=== PATIENT | female | born 1970 | race Caucasian/White ===

== ENCOUNTER 2019-05-17 13:53 | Emergency (ER) | payer MEDICARE, MEDICAID ==
[~2019-05-17] VITALS: Ht 149.9 cm; Wt 46.4 kg
[2019-05-17] MEDS ORDERED: iohexol 350MG/ML 100ml bottle IV ONE (14:31)
[2019-05-17] MEDS ORDERED: P-EP-21 PO (14:32)
[2019-05-17] MEDS ORDERED: ASPI-1265 PO (14:32)
[2019-05-17] MEDS ORDERED: POLY17PO10 PO (14:41)
[2019-05-17] MEDS ORDERED: ASCO500C15 PO (14:41)
[2019-05-17] MEDS ORDERED: MULT-933 PO (14:41)
[2019-05-17] MEDS ORDERED: levetiracetam PO (14:41)
[2019-05-17] MEDS ORDERED: LEVO50TA8 PO (14:41)
[2019-05-17] MEDS ORDERED: CLON-528 PO (14:41)
[2019-05-17] MEDS ORDERED: LACT10SO PO (14:41)
[2019-05-17] MEDS ORDERED: CLON-527 PO (14:41)
[2019-05-17 14:44] LABS: BASOPHILS % (AUTO) 0.6 % (0-1); EOSINOPHILS # (AUTO) 0.1 X10'3 (0-0.9); EOSINOPHILS % (AUTO) 1.5 % (0-6); HEMATOCRIT 39.8 % (35.0-45.0); HEMOGLOBIN 13.8 g/dl (12.0-16.0); LYMPHOCYTES # (AUTO) 1.5 X10'3 (1.1-4.8); LYMPHOCYTES % (AUTO) 27.1 % (21-51); MEAN CORPUSCULAR HEMOGLOBIN 32.7 PG (27.0-31.0); MEAN CORPUSCULAR HGB CONC 34.8 g/dL (33.0-36.5); MEAN CORPUSCULAR VOLUME 93.9 FL (78-98); MEAN PLATELET VOLUME 7.8 FL (7.4-10.4); MONOCYTES # (AUTO) 0.5 X10'3 (0-0.9); MONOCYTES % (AUTO) 8.2 % (2-12); NEUTROPHILS # (AUTO) 3.5 X10'3 (1.8-7.7); NEUTROPHILS % (AUTO) 62.6 % (42-75); PLATELET COUNT 207 X10'3 (140-440); RED BLOOD COUNT 4.24 X10'6 (4.20-5.60); RED CELL DISTRIBUTION WIDTH 13.1 % (11.5-14.5); WHITE BLOOD COUNT 5.6 X10'3 (4.5-11.0)
[2019-05-17 14:54] LABS: ALANINE AMINOTRANSFERASE 27 U/L (12-78); ALBUMIN 3.1 G/DL (3.4-5.0); ALBUMIN/GLOBULIN RATIO 0.8 (1.1-1.5); ALKALINE PHOSPHATASE 102 IU/L (46-116); ANION GAP 1 (8-16); ASPARTATE AMINO TRANSFERASE 24 U/L (10-37); BILIRUBIN,TOTAL 0.2 MG/DL (0.1-1.0); BLOOD UREA NITROGEN 18 MG/DL (7-18); CALCIUM 8.2 MG/DL (8.5-10.1); CHLORIDE 107 MMOL/L (99-107); CREATININE 0.75 MG/DL (0.40-0.90); GLUCOSE 94 MG/DL (70-104); POTASSIUM 3.9 MMOL/L (3.5-5.1); SODIUM 143 MMOL/L (135-145); TOTAL CARBON DIOXIDE 35.5 MMOL/L (24-32); TOTAL PROTEIN 7.1 G/DL (6.4-8.2); eGFR 82 ML/MIN
[2019-05-17 14:57] LABS: PARTIAL THROMBOPLASTIN TIME 29 SECONDS (22-32)
--- NOTE | 2019-05-17 15:31 | NUR ---
BACK FROM CT
[2019-05-17] MEDS ORDERED: AZIT-63 PO (15:49)
[2019-05-17] MEDS ORDERED: normal saline 1000ml 1,000 ML IV ONE (15:50)
[2019-05-17 16:43] VITALS: BP 114/83
== END 2019-05-17 17:22 | disposition home or self-care (01) ==
LOC: ER 13:53
DX: R05 Cough (principal); R41.82 Altered mental status, unspecified; Q90.9 Down syndrome, unspecified; G30.9 Alzheimer's disease, unspecified; F02.80 Dementia in other diseases classified elsewhere, unspecified severity, without behavioral disturbance, psychotic disturbance, mood disturbance, and anxiety; Z79.82 Long term (current) use of aspirin; Z79.899 Other long term (current) drug therapy; Z79.2 Long term (current) use of antibiotics
CPT/HCPCS: 36415; 71045; 71275; 80053; 83605; 83880; 85025; 85610; 85730; 87040; 96360; 99284; J7030; Q9967

== ENCOUNTER 2021-06-01 19:51 | Emergency (ER) | payer MEDICARE, MEDICAID ==
[~2021-06-01] VITALS: Ht 162.6 cm; Wt 61.4 kg
[~2021-06-01 19:51] MED LIST: ASCO500C18 PO; ASPI-1265 PO; CLON-527 PO; CLON-528 PO; LACT10SO3 PO; LEVO50TA8 PO; MULT-933 PO; P-EP-21 PO; POLY17PO10 PO; levetiracetam PO
[2021-06-01 20:42] VITALS: BP 130/66
== END 2021-06-01 22:20 | disposition home or self-care (01) ==
LOC: ER 19:51
DX: Z02.89 Encounter for other administrative examinations (principal); Q90.9 Down syndrome, unspecified; Z60.2 Problems related to living alone; Z88.8 Allergy status to other drugs, medicaments and biological substances; Z79.82 Long term (current) use of aspirin; Z79.899 Other long term (current) drug therapy
CPT/HCPCS: 71045; 99283

== ENCOUNTER 2022-11-14 15:00 | Emergency (ER) | payer MEDICARE, MEDICAID ==
[~2022-11-14] VITALS: Ht 142.2 cm; Wt 55.0 kg
[~2022-11-14 15:00] MED LIST changes: +ASPI-1265 GT; -ASPI-1265 PO; +CLON-528 GT; -CLON-528 PO; +LEVO50TA8 GT; -LEVO50TA8 PO
[2022-11-14 15:21] VITALS: BP 113/77
[2022-11-14 16:38] LABS: BASOPHILS % (AUTO) 0.4 % (0-1); EOSINOPHILS # (AUTO) 0.1 X10'3 (0-0.9); EOSINOPHILS % (AUTO) 0.8 % (0-6); HEMATOCRIT 39.6 % (35.0-45.0); HEMOGLOBIN 13.4 g/dl (12.0-16.0); LYMPHOCYTES # (AUTO) 1.4 X10'3 (1.1-4.8); LYMPHOCYTES % (AUTO) 22.5 % (21-51); MEAN CORPUSCULAR HEMOGLOBIN 31.3 PG (27.0-31.0); MEAN CORPUSCULAR HGB CONC 33.7 g/dL (33.0-36.5); MEAN CORPUSCULAR VOLUME 92.8 FL (78-98); MEAN PLATELET VOLUME 8.7 FL (7.4-10.4); MONOCYTES % (AUTO) 16.3 % (2-12); NEUTROPHILS # (AUTO) 3.6 X10'3 (1.8-7.7); PLATELET COUNT 254 X10'3 (140-440); RED BLOOD COUNT 4.26 X10'6 (4.20-5.60); RED CELL DISTRIBUTION WIDTH 13.8 % (11.5-14.5)
[2022-11-14] MEDS ORDERED: amox tr/clav. pot 400mg/5ml 100ml suspension PO ONE (16:45)
[2022-11-14] MEDS ORDERED: dexamethasone 4mg/ml inj IM ONE (16:45)
[2022-11-14 17:04] LABS: ALANINE AMINOTRANSFERASE 44 U/L (12-78); ALBUMIN/GLOBULIN RATIO 0.7 (1.1-1.5); ALKALINE PHOSPHATASE 83 IU/L (46-116); ANION GAP 6 (8-16); ASPARTATE AMINO TRANSFERASE 29 U/L (10-37); BILIRUBIN,TOTAL 0.3 MG/DL (0.1-1.0); BLOOD UREA NITROGEN 5 MG/DL (7-18); BUN/CREATININE RATIO 7.5 (10.0-20.0); C-REACTIVE PROTEIN 5.21 MG/DL (0.0-0.5); CALCIUM 8.9 MG/DL (8.5-10.1); CHLORIDE 98 MMOL/L (99-107); CREATININE 0.67 MG/DL (0.40-0.90); GLUCOSE 100 MG/DL (70-104); POTASSIUM 4.5 MMOL/L (3.5-5.1); SODIUM 134 MMOL/L (135-145); TOTAL CARBON DIOXIDE 30.1 MMOL/L (24-32); TOTAL PROTEIN 7.1 G/DL (6.4-8.2); eGFR > 90 ML/MIN
[2022-11-14] MEDS ORDERED: normal saline 1000ML IV soln IVB ONE (17:30)
[2022-11-14 18:42] LABS: TOTAL CELLS COUNTED 100
[2022-11-14 18:43] LABS: PLATELET ESTIMATE NORMAL
--- NOTE | 2022-11-14 19:00 | NUR ---
intake 40ml tap water into neisha tube
== END 2022-11-14 19:54 | disposition home or self-care (01) ==
LOC: ER 15:01
DX: U07.1 COVID-19 (principal); Z88.1 Allergy status to other antibiotic agents; Z88.8 Allergy status to other drugs, medicaments and biological substances; Z79.899 Other long term (current) drug therapy
CPT/HCPCS: 36415; 71045; 80053; 83605; 84145; 85007; 85025; 86140; 96372; 99284; J1100; J7040

== ENCOUNTER 2022-11-15 18:59 | Inpatient (IN) | payer MEDICARE, MEDICAID ==
[~2022-11-15] VITALS: Ht 142.2 cm; Wt 55.2 kg
[2022-11-15 20:22] LABS: BASOPHILS % (AUTO) 0.1 % (0-1); EOSINOPHILS % (AUTO) 0.1 % (0-6); HEMATOCRIT 37.4 % (35.0-45.0); HEMOGLOBIN 12.6 g/dl (12.0-16.0); LYMPHOCYTES # (AUTO) 1.3 X10'3 (1.1-4.8); LYMPHOCYTES % (AUTO) 13.1 % (21-51); MEAN CORPUSCULAR HEMOGLOBIN 31.3 PG (27.0-31.0); MEAN CORPUSCULAR HGB CONC 33.8 g/dL (33.0-36.5); MEAN CORPUSCULAR VOLUME 92.6 FL (78-98); MEAN PLATELET VOLUME 8.8 FL (7.4-10.4); MONOCYTES # (AUTO) 1.9 X10'3 (0-0.9); MONOCYTES % (AUTO) 19.2 % (2-12); NEUTROPHILS # (AUTO) 6.7 X10'3 (1.8-7.7); NEUTROPHILS % (AUTO) 67.5 % (42-75); PLATELET COUNT 313 X10'3 (140-440); RED BLOOD COUNT 4.03 X10'6 (4.20-5.60); RED CELL DISTRIBUTION WIDTH 13.8 % (11.5-14.5); WHITE BLOOD COUNT 9.9 X10'3 (4.5-11.0)
[2022-11-15] MEDS ORDERED: dexamethasone sod phosphate 10mg/ml inj IM STA (20:42)
[2022-11-15] MEDS ORDERED: normal saline 1000ML IV soln IVB ONE (20:45)
[2022-11-15 20:49] LABS: ALANINE AMINOTRANSFERASE 38 U/L (12-78); ALBUMIN 2.8 G/DL (3.4-5.0); ALBUMIN/GLOBULIN RATIO 0.7 (1.1-1.5); ALKALINE PHOSPHATASE 75 IU/L (46-116); ANION GAP 8 (8-16); ASPARTATE AMINO TRANSFERASE 22 U/L (10-37); BILIRUBIN,TOTAL 0.2 MG/DL (0.1-1.0); BLOOD UREA NITROGEN 8 MG/DL (7-18); BUN/CREATININE RATIO 12.7 (10.0-20.0); CALCIUM 8.5 MG/DL (8.5-10.1); CHLORIDE 98 MMOL/L (99-107); CREATININE 0.63 MG/DL (0.40-0.90); GLUCOSE 57 MG/DL (70-104); POTASSIUM 3.6 MMOL/L (3.5-5.1); SODIUM 134 MMOL/L (135-145); TOTAL CARBON DIOXIDE 28.2 MMOL/L (24-32); TOTAL PROTEIN 6.8 G/DL (6.4-8.2); eGFR > 90 ML/MIN
[2022-11-15 20:52] LABS: PLATELET ESTIMATE NORMAL; TOTAL CELLS COUNTED 100
[2022-11-15 20:53] LABS: POIKILOCYTOSIS FEW; SMUDGE CELLS FEW
[2022-11-15] MEDS ORDERED: ipratropium/albuterol 3ml nebule NEB ONE (20:55)
[2022-11-15] MEDS ORDERED: budesonide 0.5mg/2ml UD nebule IH ONE (20:55)
--- NOTE | 2022-11-15 21:42 | NUR ---
caregiver at bedside. pt still coughing up stuff and needs suctions per caregiver. resp tx finished and per resp, no improvement with tx. dr franz notified and at bedside.
--- NOTE | 2022-11-15 23:37 | NUR ---
caregiver suctioning secretions at bedside, dr daniel at bedside.
[2022-11-15] MEDS ORDERED: mag hydrox/Alum hydrox/simeth 30ml oral suspension PO PRN (23:40)
[2022-11-15] MEDS ORDERED: ondansetron/PF 4mg/2ml inj IV PRN (23:40)
[2022-11-15] MEDS ORDERED: magnesium hydroxide 30ml (MOM) UD suspension PO PRN (23:40)
[2022-11-15] MEDS ORDERED: magnesium 2GM in 50ml NS 50 ML IV PRN (23:40)
[2022-11-15] MEDS ORDERED: magnesium 4gm in 100ml NS 100 ML IV PRN (23:40)
[2022-11-15] MEDS ORDERED: potassium Cl 40MEQ/1/2NS 520ml 520 ML IV PRN (23:40)
[2022-11-15] MEDS ORDERED: acetaminophen 650mg rectal suppository RC PRN (23:40)
--- NOTE | 2022-11-15 23:52 | NUR ---
pt brief changed with caregiver, 1 urine and 1 stool. per caregiver, normal for pt.
[2022-11-15] MEDS: normal saline 1000ml 1,000 ML IV SCH (23:59)
[2022-11-16] MEDS ORDERED: LACT-193 GT (00:38)
[2022-11-16] MEDS ORDERED: CALC500T63 GT (00:38)
[2022-11-16] MEDS ORDERED: MENT71OI TOP (00:38)
[2022-11-16] MEDS ORDERED: AZIT200S43 GT (00:38)
[2022-11-16] MEDS ORDERED: [UNRECOGNIZED DRUG - CODE] GT (00:38)
[2022-11-16] MEDS ORDERED: LEVE100S GT (00:52)
[2022-11-16] MEDS ORDERED: LORA10TA7 GT (00:52)
[2022-11-16] MEDS ORDERED: [UNRECOGNIZED DRUG - CODE] GT (01:09)
[2022-11-16] MEDS ORDERED: ASCO-134 GT (01:09)
[2022-11-16] MEDS ORDERED: POLY119P2 GT (01:09)
[2022-11-16] MEDS ORDERED: ELEC1000 GT (01:09)
[2022-11-16] MEDS ORDERED: DIAZ1KIT2 RC (01:28)
[2022-11-16] MEDS ORDERED: ZINC57OI3 TOP (01:28)
[2022-11-16] MEDS ORDERED: NA P133E4 RC (01:28)
[2022-11-16] MEDS ORDERED: BISA10SU60 RC (01:28)
[2022-11-16] MEDS ORDERED: ALBU2.5V12 NEB (01:28)
[2022-11-16] MEDS ORDERED: PEG15DRO14 EACHEYE (01:28)
[2022-11-16] MEDS ORDERED: IBUP-2768 GT (01:44)
[2022-11-16] MEDS ORDERED: [UNRECOGNIZED DRUG - CODE] GT (01:44)
[2022-11-16] MEDS ORDERED: MAGN400O6 GT (01:44)
[2022-11-16] MEDS ORDERED: NYST15CR36 TOP (01:44)
[2022-11-16] MEDS ORDERED: BISM262O GT (01:44)
[2022-11-16] MEDS ORDERED: OLOP5DRO26 EACHEYE (01:44)
[2022-11-16] MEDS ORDERED: HYDROCORTISONE 2.5% TOP (01:44)
[2022-11-16] MEDS ORDERED: TRIA15CR61 TOP (01:46)
[2022-11-16] MEDS ORDERED: NYSTATIN CREAM - 30GM TUBE TP PRN (02:05)
[2022-11-16] MEDS ORDERED: PEG 400/HYPROMELLOSE/GLYCERIN 15ml bottle EACHEYE PRN ×2 (02:05)
[2022-11-16] MEDS ORDERED: albuterol 2.5 MG/3 ML nebule NEB PRN (02:05)
[2022-11-16] MEDS ORDERED: bisacodyl 10mg suppository rectal RC PRN (02:05)
[2022-11-16 02:09] LABS: BASOPHILS % (AUTO) 0.1 % (0-1); EOSINOPHILS % (AUTO) 0 % (0-6); HEMATOCRIT 35.3 % (35.0-45.0); LYMPHOCYTES # (AUTO) 0.3 X10'3 (1.1-4.8); LYMPHOCYTES % (AUTO) 6.2 % (21-51); MEAN CORPUSCULAR HEMOGLOBIN 30.8 PG (27.0-31.0); MEAN CORPUSCULAR HGB CONC 33.8 g/dL (33.0-36.5); MEAN CORPUSCULAR VOLUME 91.2 FL (78-98); MEAN PLATELET VOLUME 8.6 FL (7.4-10.4); MONOCYTES # (AUTO) 0.3 X10'3 (0-0.9); MONOCYTES % (AUTO) 5.7 % (2-12); NEUTROPHILS # (AUTO) 4.9 X10'3 (1.8-7.7); PLATELET COUNT 283 X10'3 (140-440); RED BLOOD COUNT 3.88 X10'6 (4.20-5.60); RED CELL DISTRIBUTION WIDTH 13.8 % (11.5-14.5); WHITE BLOOD COUNT 5.6 X10'3 (4.5-11.0)
[2022-11-16 02:17] LABS: ALANINE AMINOTRANSFERASE 34 U/L (12-78); ALBUMIN 2.7 G/DL (3.4-5.0); ALBUMIN/GLOBULIN RATIO 0.7 (1.1-1.5); ALKALINE PHOSPHATASE 70 IU/L (46-116); ANION GAP 6 (8-16); ASPARTATE AMINO TRANSFERASE 21 U/L (10-37); BILIRUBIN,TOTAL 0.2 MG/DL (0.1-1.0); BLOOD UREA NITROGEN 5 MG/DL (7-18); BUN/CREATININE RATIO 6.8 (10.0-20.0); CALCIUM 8.1 MG/DL (8.5-10.1); CHLORIDE 102 MMOL/L (99-107); CREATININE 0.73 MG/DL (0.40-0.90); GLUCOSE 161 MG/DL (70-104); MAGNESIUM 2.1 MG/DL (1.5-2.4); SODIUM 135 MMOL/L (135-145); TOTAL PROTEIN 6.4 G/DL (6.4-8.2); eGFR 83 ML/MIN
[2022-11-16] MEDS ORDERED: levoTHYROXINE 25mcg tablet GT SCH (02:31)
--- NOTE | 2022-11-16 06:39 | NUR ---
Patient received in bed, caregiver at bedside.
[2022-11-16] MEDS ORDERED: lansoprazole 15mg solutab PEG SCH (07:30)
[2022-11-16] MEDS ORDERED: lactose-reduced food/fiber (Jevity 1.2 Cal) 237ml BOTTLE GT SCH ×2 (08:00→13:00)
[2022-11-16] MEDS ORDERED: dexamethasone inj 6 MG in dextrose 5%-water 100 ML IV SCH (08:00)
[2022-11-16] MEDS ORDERED: docusate sod 100mg capsule PO SCH (08:00)
[2022-11-16] MEDS ORDERED: non-formulary drug (Na Phos,M-B/Na Phos,Di-Ba* (Fleet's Enema*) 1 BOTTLE) RC PRN (08:30)
[2022-11-16] MEDS ORDERED: triamcinolone acetonide 0.5% cream 15gm TP PRN (08:30)
[2022-11-16] MEDS ORDERED: hydrocortisone 2.5% cream 28.4gm TP PRN (08:30)
[2022-11-16] MEDS ORDERED: guaiFENesin 200 MG/10 ML oral syrup UD cup GT PRN (08:30)
[2022-11-16] MEDS ORDERED: DIAZEPAM 10 MG PR PRN (08:30)
[2022-11-16] MEDS ORDERED: bismuth subsalicylate 262mg/15ml oral suspension PEG PRN (08:30)
[2022-11-16 09:50] VITALS: BP 143/74
[2022-11-16] MEDS: K and/or MAG REPLACEMENT MC SCH ×2 (10:24→18:28)
[2022-11-16 10:38] LABS: D-DIMER 0.29 MG/L FEU (0-0.50)
[2022-11-16] MEDS: lansoprazole 15mg solutab PEG SCH (10:42)
[2022-11-16] MEDS: aspirin 81mg tab.chew GT SCH (10:42)
[2022-11-16] MEDS: levoTHYROXINE 25mcg tablet GT SCH (10:42)
[2022-11-16] MEDS: levetiracetam 100mg/ml oral solution 5ml UD cup GT SCH ×2 (10:42→22:04)
[2022-11-16] MEDS: heparin, porcine 5000 units/ml vial SQ SCH ×2 (10:42→22:05)
--- NOTE | 2022-11-16 11:38 | NUR ---
TF consult: Pt admit for Covid-19 with a history of down syndrome seizures, and feeding through G-tube at home per EMR. Caregiver at bedside during time of visit named Ling contact infomation . Caregiver reports pt has had a G-tube for many years ,gets Jevity 1.2 bolus feeds at 247mL x 3 day, and unsure of the water flushes amounts. Noted discrepency of ht in EMR, caregiver states pt is 4'8 (56in) tall. TF to start today per MD, see recs below. Pending LBM in the EMR. Will continue to follow. Recommendations: 1. Continous TF via G-tube of Jevity 1.2kcal at 45ml/hr goal rate; to provide 1080ml volume/day, 1296 kcal, 60g of protein, and 872ml of free water) 2. Water flushes q4H at 70ml, monitor serum Na 3 Monitor TF tolerance 4.Prealbumin q Sunday/ 5. routine bowel care 6. daily scaled wts Addendum: 11/16/22 at 1139 [address] An[address] Amended: Links added. Addendum: 11/16/22 at [address] TODD has reviewed and approves of above note.
[2022-11-16] MEDS: polyethylene glycol 3350 17gm powd pack PEG SCH (12:52)
--- NOTE | 2022-11-16 14:16 | NUR ---
F/u 11/16: Per RN, pt caregiver requests only bolus feeds at usual 0830, 1430, 2029 schedule instead of continuous at this time; updated recs below d/w RN and MD notified. Per caregiver pt receives "lots" of water at home but unsure amount since she doesn't directly provide; noted serum Na 134mmol/L on admit now 135mmol/L this AM. Will monitor for TF tolerance and adjustment needs as medically indicated. Recommendations: 1. Bolus G-tube feeds TID at 0830, 1430, and 2029 home schedule per caregiver request using [email or web address] 1.2 at 360ml goal bolus; to provide 1080ml volume/day, 1296 kcal, 60g of protein, and 872ml of free water. Initiate at 250ml bolus and advance 80ml per bolus to goal as tolerated. 2. Additional 70ml water flush before and after each bolus, monitor serum Na since 135mmol/L this AM up from initial 134mmol/L s/p NS per EMR 3. Monitor TF tolerance 4. Prealbumin q Sunday/; daily scaled wts 5. routine bowel care Addendum: 11/16/22 at [address] Amended: Links added. Addendum: 11/16/22 at [address] *CORRECTION* Recommendations: 1. Bolus G-tube feeds TID at 0830, 1430, and 2030 home schedule per caregiver request using [email or web address] 1.2 at 360ml goal bolus; to provide 1080ml volume/day, 1296 kcal, 60g of protein, and 872ml of free water. Initiate at 250ml bolus and advance 70ml per bolus to goal as tolerated.
[2022-11-16] MEDS: normal saline 1000ml 1,000 ML IV SCH (16:46)
[2022-11-16 18:00] VITALS: BP 121/65
--- NOTE | 2022-11-16 18:00 | NUR ---
Patient in room [facility]TH[facility] 4006. I have received report from Jose Luis ACOSTA and had the opportunity to ask questions and assume patient care.
[2022-11-16] MEDS: MENTHOL TOP SCH (20:00)
[2022-11-16] MEDS: zinc oxide ointment 30gm tube TP SCH (20:00)
[2022-11-16] MEDS: ZINC OXIDE TOP SCH (20:00)
[2022-11-16] MEDS ORDERED: calcium carbonate 500mg chew tablet PEG PRN (21:00)
[2022-11-16] MEDS ORDERED: clonazePAM 0.5mg tablet PEG SCH (21:00)
[2022-11-16] MEDS ORDERED: CLONAZEPAM 0.25 MG oral disentigrating tablet (ODT) PO SCH (21:17)
[2022-11-16 22:00] VITALS: BP 140/84
[2022-11-16] MEDS: docusate sodium 100mg/10ml UD cup PO SCH (22:04)
[2022-11-16] MEDS: dexamethasone inj 6 MG in normal saline 50ml IV soln 50 ML IV SCH (22:05)
[2022-11-16] MEDS: ascorbic acid 500mg tablet PEG SCH (22:06)
[2022-11-17 02:00] VITALS: BP 119/74
[2022-11-17] MEDS: normal saline 1000ml 1,000 ML IV SCH (04:21)
[2022-11-17] MEDS: lansoprazole 15mg solutab PEG SCH (05:19)
[2022-11-17] MEDS: levoTHYROXINE 25mcg tablet GT SCH (05:19)
[2022-11-17 06:00] VITALS: BP 156/71
[2022-11-17 06:26] LABS: BASOPHILS % (AUTO) 0.2 % (0-1); EOSINOPHILS % (AUTO) 0 % (0-6); HEMATOCRIT 36.8 % (35.0-45.0); HEMOGLOBIN 12.2 g/dl (12.0-16.0); LYMPHOCYTES # (AUTO) 0.5 X10'3 (1.1-4.8); LYMPHOCYTES % (AUTO) 12.1 % (21-51); MEAN CORPUSCULAR HEMOGLOBIN 30.6 PG (27.0-31.0); MEAN CORPUSCULAR HGB CONC 33.1 g/dL (33.0-36.5); MEAN CORPUSCULAR VOLUME 92.3 FL (78-98); MEAN PLATELET VOLUME 9.2 FL (7.4-10.4); MONOCYTES # (AUTO) 0.3 X10'3 (0-0.9); MONOCYTES % (AUTO) 6.6 % (2-12); NEUTROPHILS # (AUTO) 3.6 X10'3 (1.8-7.7); NEUTROPHILS % (AUTO) 81.1 % (42-75); PLATELET COUNT 258 X10'3 (140-440); RED BLOOD COUNT 3.98 X10'6 (4.20-5.60); RED CELL DISTRIBUTION WIDTH 13.5 % (11.5-14.5); WHITE BLOOD COUNT 4.4 X10'3 (4.5-11.0)
[2022-11-17 06:32] LABS: D-DIMER 0.43 MG/L FEU (0-0.50)
[2022-11-17 06:40] LABS: ALANINE AMINOTRANSFERASE 36 U/L (12-78); ALBUMIN 2.6 G/DL (3.4-5.0); ALBUMIN/GLOBULIN RATIO 0.7 (1.1-1.5); ALKALINE PHOSPHATASE 73 IU/L (46-116); ANION GAP 8 (8-16); ASPARTATE AMINO TRANSFERASE 24 U/L (10-37); BILIRUBIN,TOTAL 0.2 MG/DL (0.1-1.0); BLOOD UREA NITROGEN 7 MG/DL (7-18); BUN/CREATININE RATIO 11.1 (10.0-20.0); C-REACTIVE PROTEIN 1.11 MG/DL (0.0-0.5); CALCIUM 7.9 MG/DL (8.5-10.1); CHLORIDE 102 MMOL/L (99-107); CREATININE 0.63 MG/DL (0.40-0.90); GLUCOSE 134 MG/DL (70-104); LACTATE DEHYDROGENASE 186 U/L (81-234); MAGNESIUM 2.2 MG/DL (1.5-2.4); PHOSPHORUS 2.4 MG/DL (2.3-4.5); POTASSIUM 4.3 MMOL/L (3.5-5.1); PREALBUMIN 17.9 MG/DL (19-36); SODIUM 137 MMOL/L (135-145); TOTAL PROTEIN 6.3 G/DL (6.4-8.2); eGFR > 90 ML/MIN
[2022-11-17] MEDS: heparin, porcine 5000 units/ml vial SQ SCH ×2 (08:00→21:49)
[2022-11-17] MEDS: MENTHOL TOP SCH ×2 (08:00→20:00)
[2022-11-17] MEDS: levetiracetam 100mg/ml oral solution 5ml UD cup GT SCH ×2 (08:00→20:00)
[2022-11-17] MEDS: docusate sodium 100mg/10ml UD cup PO SCH ×2 (08:00→21:48)
[2022-11-17] MEDS: zinc oxide ointment 30gm tube TP SCH ×2 (08:00→20:00)
[2022-11-17] MEDS: ZINC OXIDE TOP SCH ×2 (08:00→20:00)
[2022-11-17] MEDS: K and/or MAG REPLACEMENT MC SCH ×2 (08:00→20:00)
[2022-11-17] MEDS: dexamethasone inj 6 MG in normal saline 50ml IV soln 50 ML IV SCH ×2 (08:00→21:49)
--- NOTE | 2022-11-17 09:26 | NUR ---
Noted pt with a low Ablert of 7. No edema or wounds identified in EMR. Pt tolerating bolus TF per screen and cyclone repairer. Serum Na remains WNL. No changes to nutrition recommendations at this time. Will continue to follow. Addendum: 11/17/22 at [address] Amended: Links added.
[2022-11-17 10:00] VITALS: BP 131/63
--- NOTE | 2022-11-17 10:53 | NUR ---
Message: Jenni Campos [phone] RE: Celestino [phone] please call have question re: Gopiitussin order for 1000mg Q4h prn pharmacy no help Custom Responses: promotional table spacer Transaction number: [id number]
[2022-11-17] MEDS ORDERED: guaiFENesin 200 MG/10 ML oral syrup UD cup GT PRN (10:58)
[2022-11-17] MEDS: ascorbic acid 500mg tablet PEG SCH ×2 (11:04→21:51)
[2022-11-17] MEDS: aspirin 81mg tab.chew GT SCH (11:04)
[2022-11-17] MEDS: loratadine 10mg tablet PEG SCH (11:04)
[2022-11-17] MEDS: polyethylene glycol 3350 17gm powd pack PEG SCH (12:00)
--- NOTE | 2022-11-17 13:27 | NUR ---
Primary caregiver at the bedside, attentive to teaching and gives a verbal return of understanding. PRESSURE ULCER EDUCATION: DEFINITION: A pressure ulcer is an area of skin that breaks down when you stay in one position too long. The constant pressure against the skin reduces the blood flow to that area and the affected tissue dies. CAUSES: "Being bedridden or in a wheelchair "Fragile skin "Having a chronic condition, such as diabetes or vascular disease "Inability to move certain parts of your body without assistance "Older age "Incontinence of urine or stool SYMPTOMS: "A reddened area that DOES NOT turn white when pressed on - this can be the beginning of a pressure ulcer "A blister, deep sore or a crater - these can be advanced pressure ulcers FIRST AID: "Relieve the pressure on this area "Keep the area clean and dry "Call your primary doctor if you see any of the above symptoms "DO NOT massage the area "DO NOT use a donut shaped or ring shaped pillow- these actually interfere with the blood flow and cause complications PREVENTION: "Check for pressure ulcers everyday "Change position at least every two hours to relieve pressure "Use items that help relieve pressure- pillows, sheepskin, foam padding, and powders. "Keep skin clean and dry "Eat healthy well balanced meals "Exercise daily IF YOU SEE ANY OF THESE SYMPTOMS WHILE IN THE HOSPITAL - TELL YOUR NURSE IMMEDIATELY. IF YOU SEE ANY OF THESE SYMPTOMS WHILE AT HOME OR HAVE ANY QUESTIONS OR CONCERNS ABOUT PRESSURE ULCERS - CALL YOUR PRIMARY DOCTOR IMMEDIATELY. Addendum: 11/17/22 at 1328 by Nona Izaguirre LVN Amended: Links added.
[2022-11-17 18:00] VITALS: BP 139/74
--- NOTE | 2022-11-17 18:00 | NUR ---
Patient in room ORTH[facility] 4006. I have received report from Suly ACOSTA and had the opportunity to ask questions and assume patient care.
--- NOTE | 2022-11-17 18:32 | NUR ---
Gave report to Shena ACOSTA
[2022-11-17] MEDS ORDERED: CLONAZEPAM 0.25 MG oral disentigrating tablet (ODT) PO ONE (21:25)
[2022-11-17 22:00] VITALS: BP 121/55
[2022-11-18] MEDS: normal saline 1000ml 1,000 ML IV SCH ×2 (01:40→03:00)
[2022-11-18 02:00] VITALS: BP 121/81
--- NOTE | 2022-11-18 03:51 | NUR ---
Pt was transferred to [facility]. Will continue to turn q2 and monitor
[2022-11-18] MEDS: levoTHYROXINE 25mcg tablet GT SCH (05:27)
[2022-11-18] MEDS: lansoprazole 15mg solutab PEG SCH (05:28)
[2022-11-18 06:00] VITALS: BP 152/70
--- NOTE | 2022-11-18 06:09 | NUR ---
Problems reprioritized. Patient report given, questions answered & plan of care reviewed with Marianna ACOSTA.
--- NOTE | 2022-11-18 06:25 | NUR ---
Patient in room ORTHO 4006. I have received report from Renetta and had the opportunity to ask questions and assume patient care.
[2022-11-18 07:32] LABS: BASOPHILS % (AUTO) 0.2 % (0-1); EOSINOPHILS % (AUTO) 0 % (0-6); HEMOGLOBIN 13.5 g/dl (12.0-16.0); LYMPHOCYTES # (AUTO) 0.9 X10'3 (1.1-4.8); LYMPHOCYTES % (AUTO) 14.9 % (21-51); MEAN CORPUSCULAR HEMOGLOBIN 30.9 PG (27.0-31.0); MEAN CORPUSCULAR HGB CONC 33.8 g/dL (33.0-36.5); MEAN CORPUSCULAR VOLUME 91.6 FL (78-98); MEAN PLATELET VOLUME 8.8 FL (7.4-10.4); MONOCYTES # (AUTO) 0.5 X10'3 (0-0.9); MONOCYTES % (AUTO) 8.6 % (2-12); NEUTROPHILS # (AUTO) 4.4 X10'3 (1.8-7.7); NEUTROPHILS % (AUTO) 76.3 % (42-75); PLATELET COUNT 278 X10'3 (140-440); RED BLOOD COUNT 4.37 X10'6 (4.20-5.60); RED CELL DISTRIBUTION WIDTH 13.9 % (11.5-14.5); WHITE BLOOD COUNT 5.8 X10'3 (4.5-11.0)
[2022-11-18 07:47] LABS: D-DIMER 0.51 MG/L FEU (0-0.50)
[2022-11-18] MEDS ORDERED: heparin, porcine 5000 units/ml vial SQ SCH (08:00)
[2022-11-18] MEDS: MENTHOL TOP SCH (08:00)
[2022-11-18] MEDS: K and/or MAG REPLACEMENT MC SCH (08:00)
[2022-11-18] MEDS: ZINC OXIDE TOP SCH (08:00)
[2022-11-18] MEDS: zinc oxide ointment 30gm tube TP SCH (08:00)
[2022-11-18] MEDS: docusate sodium 100mg/10ml UD cup PO SCH (08:54)
[2022-11-18] MEDS: loratadine 10mg tablet PEG SCH (08:54)
[2022-11-18] MEDS: levetiracetam 100mg/ml oral solution 5ml UD cup GT SCH (08:54)
[2022-11-18] MEDS: dexamethasone inj 6 MG in normal saline 50ml IV soln 50 ML IV SCH (08:54)
[2022-11-18] MEDS: ascorbic acid 500mg tablet PEG SCH (08:54)
[2022-11-18] MEDS: aspirin 81mg tab.chew GT SCH (08:54)
[2022-11-18 09:15] LABS: ALANINE AMINOTRANSFERASE 39 U/L (12-78); ALBUMIN/GLOBULIN RATIO 0.7 (1.1-1.5); ALKALINE PHOSPHATASE 78 IU/L (46-116); ANION GAP 6 (8-16); ASPARTATE AMINO TRANSFERASE 23 U/L (10-37); BILIRUBIN,TOTAL 0.2 MG/DL (0.1-1.0); BLOOD UREA NITROGEN 10 MG/DL (7-18); BUN/CREATININE RATIO 15.4 (10.0-20.0); C-REACTIVE PROTEIN 0.63 MG/DL (0.0-0.5); CALCIUM 8.5 MG/DL (8.5-10.1); CHLORIDE 100 MMOL/L (99-107); CREATININE 0.65 MG/DL (0.40-0.90); GLUCOSE 118 MG/DL (70-104); LACTATE DEHYDROGENASE 241 U/L (81-234); MAGNESIUM 2.5 MG/DL (1.5-2.4); PHOSPHORUS 2.8 MG/DL (2.3-4.5); POTASSIUM 4.2 MMOL/L (3.5-5.1); SODIUM 136 MMOL/L (135-145); TOTAL CARBON DIOXIDE 30.1 MMOL/L (24-32); TOTAL PROTEIN 7.1 G/DL (6.4-8.2); eGFR > 90 ML/MIN
[2022-11-18 09:40] LABS: TOTAL CELLS COUNTED 100
[2022-11-18 09:41] LABS: PLATELET ESTIMATE NORMAL
[2022-11-18 10:00] VITALS: BP 126/52
[2022-11-18] MEDS: polyethylene glycol 3350 17gm powd pack PEG SCH (13:02)
[2022-11-18] MEDS ORDERED: DEXA6TAB PO ×2 (13:11)
[2022-11-18] MEDS ORDERED: DEXA6TAB GT (15:23)
--- NOTE | 2022-11-18 15:47 | NUR ---
[facility]ed [facility] Per caregiver, patient is at baseline. Additional caregiver staff arrived to assist with transporting the patient back home. Patient was dressed and transferred to her own wheelchair by staff. Patient's preferred pharmacy is closed and the prescription for the discharge med needs to explicitly state for "g-tube" per patient's facility. The preferred pharmacy does not have this medication. VO obtained to fax the prescription to [facility]. Fax was successful and a copy was placed in the chart.
== END 2022-11-18 15:56 | disposition home or self-care (01) | DRG 177 ==
LOC: ER 19:00 → ED HOLD 23:41 → EDBEDREQ 11-16 03:20 → ORTHO 4S 11-16 07:24
PROVIDERS: ADMIT Internal Medicine; ATTEND Family Medicine
DX: U07.1 COVID-19 (principal); J12.82 Pneumonia due to coronavirus disease 2019; Z60.2 Problems related to living alone; F03.90 Unspecified dementia, unspecified severity, without behavioral disturbance, psychotic disturbance, mood disturbance, and anxiety; Q90.9 Down syndrome, unspecified; Z88.8 Allergy status to other drugs, medicaments and biological substances; Z79.899 Other long term (current) drug therapy; Z79.82 Long term (current) use of aspirin; Z93.1 Gastrostomy status
CPT/HCPCS: 36415; 71045; 80053; 83605; 83615; 83735; 84100; 84134; 84145; 84443; 85007; 85025; 85379; 86140; 87040; 87081; 94640; 94760; 96372; 99284; 99285; A6213; G0378; J1100; J1644; J1953; J3490; J7030; J7040

== ENCOUNTER 2023-02-28 16:10 | Emergency (ER) | payer MEDICARE, MEDICAID ==
[~2023-02-28] VITALS: Ht 142.2 cm; Wt 60.0 kg
[~2023-02-28 16:10] MED LIST changes: +ALBU2.5V12 NEB; +ASCO-134 GT; -ASCO500C18 PO; +BISA10SU60 RC; +BISM262O GT; +CALC500T63 GT; -CLON-527 PO; +DEXA6TAB GT; +DIAZ1KIT2 RC; +ELEC1000 GT; +HYDROCORTISONE 2.5% TOP; +IBUP-2768 GT; +LACT-193 GT; -LACT10SO3 PO; +LEVE100S GT; +LORA10TA7 GT; +MAGN400O6 GT; +MENT71OI TOP; -MULT-933 PO; +NA P133E4 RC; +NYST15CR36 TOP; +OLOP5DRO26 EACHEYE; -P-EP-21 PO; +PEG15DRO14 EACHEYE; +POLY119P2 GT; -POLY17PO10 PO; +TRIA15CR61 TOP; +ZINC57OI3 TOP; +[UNRECOGNIZED DRUG - CODE] GT; +[UNRECOGNIZED DRUG - CODE] GT; +[UNRECOGNIZED DRUG - CODE] GT; -levetiracetam PO
[2023-02-28 17:42] LABS: BASOPHILS # (AUTO) 0.1 X10'3 (0-0.2); BASOPHILS % (AUTO) 1.1 % (0-1); EOSINOPHILS # (AUTO) 0.1 X10'3 (0-0.9); EOSINOPHILS % (AUTO) 1.6 % (0-6); HEMOGLOBIN 13.4 g/dl (12.0-16.0); LYMPHOCYTES # (AUTO) 1.2 X10'3 (1.1-4.8); LYMPHOCYTES % (AUTO) 19.8 % (21-51); MEAN CORPUSCULAR HEMOGLOBIN 31.2 PG (27.0-31.0); MEAN CORPUSCULAR HGB CONC 33.4 g/dL (33.0-36.5); MEAN CORPUSCULAR VOLUME 93.3 FL (78-98); MEAN PLATELET VOLUME 8.4 FL (7.4-10.4); MONOCYTES # (AUTO) 0.7 X10'3 (0-0.9); MONOCYTES % (AUTO) 11.7 % (2-12); NEUTROPHILS % (AUTO) 65.8 % (42-75); PLATELET COUNT 329 X10'3 (140-440); RED BLOOD COUNT 4.28 X10'6 (4.20-5.60); WHITE BLOOD COUNT 6.1 X10'3 (4.5-11.0)
[2023-02-28 17:55] LABS: ALANINE AMINOTRANSFERASE 23 U/L (12-78); ALBUMIN 3.2 G/DL (3.4-5.0); ALBUMIN/GLOBULIN RATIO 0.8 (1.1-1.5); ALKALINE PHOSPHATASE 114 IU/L (46-116); ANION GAP 5 (8-16); ASPARTATE AMINO TRANSFERASE 21 U/L (10-37); BILIRUBIN,TOTAL 0.2 MG/DL (0.1-1.0); BLOOD UREA NITROGEN 11 MG/DL (7-18); BUN/CREATININE RATIO 16.2 (10.0-20.0); CHLORIDE 98 MMOL/L (99-107); CREATININE 0.68 MG/DL (0.40-0.90); GLUCOSE 124 MG/DL (70-104); POTASSIUM 3.8 MMOL/L (3.5-5.1); SODIUM 132 MMOL/L (135-145); TOTAL CARBON DIOXIDE 28.9 MMOL/L (24-32); TOTAL PROTEIN 7.3 G/DL (6.4-8.2); eCRCL 55 ML/MIN; eGFR > 90 ML/MIN
[2023-02-28 18:03] LABS: PRO BRAIN NATRIURETIC PEPTIDE 49 PG/ML (0-125)
[2023-02-28] MEDS ORDERED: DIPH-518 PO (20:19)
[2023-02-28] MEDS ORDERED: diphenhydrAMINE 25 MG/10 ML UD oral solution PO ONE (20:20)
[2023-02-28 20:47] VITALS: BP 15/91; PULSE 83; RESP 15; TEMP 98.1; O2SAT 99
== END 2023-02-28 20:54 | disposition home or self-care (01) ==
LOC: ER 16:11
DX: J06.9 Acute upper respiratory infection, unspecified (principal); Z88.8 Allergy status to other drugs, medicaments and biological substances; Z88.6 Allergy status to analgesic agent; Z79.899 Other long term (current) drug therapy
CPT/HCPCS: 36415; 71045; 80053; 83880; 85025; 87040; 99284; Q0163

== ENCOUNTER 2023-03-05 09:25 | Emergency (ER) | payer MEDICARE, MEDICAID ==
[~2023-03-05] VITALS: Ht 152.4 cm; Wt 53.2 kg
[~2023-03-05 09:25] MED LIST changes: +DIPH-518 PO
[2023-03-05] MEDS ORDERED: AMOX-117 PO ×2 (15:30)
[2023-03-05 15:44] VITALS: BP 153/80; PULSE 95; RESP 16; TEMP 97.9; O2SAT 94
[2023-03-05] MEDS ORDERED: AMOX-117 GT ×3 (16:18→16:33)
== END 2023-03-05 15:54 | disposition home or self-care (01) ==
LOC: ER 09:25
DX: J32.9 Chronic sinusitis, unspecified (principal); R09.81 Nasal congestion
CPT/HCPCS: 71045; 99283

== ENCOUNTER 2023-06-06 05:30 | Inpatient (IN) | payer MEDICARE, MEDICAID ==
[~2023-06-06] VITALS: Ht 157.5 cm; Wt 58.3 kg
[~2023-06-06 05:30] MED LIST changes: -BISM262O GT; -CLON-528 GT; +CLON-850 GT; -DEXA6TAB GT; +DIAZ1KIT RC; -DIPH-518 PO; +FLUT16SP35 BOTHNARES; -PEG15DRO14 EACHEYE; +[UNRECOGNIZED DRUG - CODE] GT; +[UNRECOGNIZED DRUG - CODE] GT; -[UNRECOGNIZED DRUG - CODE] GT
[2023-06-06 05:46] LABS: BASOPHILS # (AUTO) 0.1 X10'3 (0-0.2); MEAN CORPUSCULAR HEMOGLOBIN 31.8 PG (27.0-31.0); MONOCYTES # (AUTO) 0.9 X10'3 (0-0.9)
[2023-06-06] MEDS: ipratropium/albuterol 3ml nebule NEB STA (05:46)
[2023-06-06 05:47] VITALS: PULSE 118; RESP 26; O2SAT 95
[2023-06-06 05:48] LABS: BASOPHILS % (AUTO) 0.7 % (0-1); EOSINOPHILS # (AUTO) 0.2 X10'3 (0-0.9); EOSINOPHILS % (AUTO) 2.6 % (0-6); HEMATOCRIT 40.1 % (35.0-45.0); HEMOGLOBIN 13.5 g/dl (12.0-16.0); LYMPHOCYTES # (AUTO) 1.9 X10'3 (1.1-4.8); MEAN CORPUSCULAR HGB CONC 33.7 g/dL (33.0-36.5); MEAN CORPUSCULAR VOLUME 94.4 FL (78-98); MEAN PLATELET VOLUME 8.4 FL (7.4-10.4); MONOCYTES % (AUTO) 10.8 % (2-12); NEUTROPHILS # (AUTO) 5.2 X10'3 (1.8-7.7); NEUTROPHILS % (AUTO) 62.9 % (42-75); PLATELET COUNT 304 X10'3 (140-440); RED BLOOD COUNT 4.25 X10'6 (4.20-5.60); RED CELL DISTRIBUTION WIDTH 13.8 % (11.5-14.5); WHITE BLOOD COUNT 8.3 X10'3 (4.5-11.0)
[2023-06-06 05:52] LABS: ABG BASE EXCESS 2.3 mmol/L (-2.0-2.0); ABG HCO3 26.1 mmol/L (22.0-26.0); ABG OXYGEN SATURATION 99.7 % (94-97); ABG PCO2 (T) 37.1 mmHg (32.0-45.0); ABG PH (T) 7.463 (7.350-7.450); ABG PO2 (T) 422.1 mmHg (75.0-100.0); ALLEN'S TEST POSITIVE; FCOHb 0.3 % (0.0-3.9); FHHb 0.3 % (0.0-5.0); FLOW 15 L/min; FMetHb 0.4 % (0.0-1.5); MODE MASK - NRB; PATIENT TEMPERATURE 36.6; TOTAL HEMOGLOBIN 14.5 G/dl (12.0-16.0)
[2023-06-06 05:59] VITALS: PULSE 105; RESP 20
[2023-06-06 06:02] LABS: ALANINE AMINOTRANSFERASE 23 U/L (12-78); ALBUMIN/GLOBULIN RATIO 0.7 (1.1-1.5); ALKALINE PHOSPHATASE 101 IU/L (46-116); ANION GAP 6 (8-16); ASPARTATE AMINO TRANSFERASE 14 U/L (10-37); BILIRUBIN,TOTAL 0.5 MG/DL (0.1-1.0); BLOOD UREA NITROGEN 9 MG/DL (7-18); BUN/CREATININE RATIO 12.3 (10.0-20.0); CHLORIDE 100 MMOL/L (99-107); CREATININE 0.73 MG/DL (0.40-0.90); GLUCOSE 104 MG/DL (70-104); POTASSIUM 3.9 MMOL/L (3.5-5.1); SODIUM 136 MMOL/L (135-145); TOTAL CARBON DIOXIDE 29.6 MMOL/L (24-32); TOTAL PROTEIN 7.1 G/DL (6.4-8.2); eCRCL 70 ML/MIN; eGFR 83 ML/MIN
[2023-06-06 06:10] LABS: PRO BRAIN NATRIURETIC PEPTIDE 54 PG/ML (0-125)
[2023-06-06] MEDS: CefTRIAXone/D5W-Rocephin 1gm 50 ML IV ONE (06:29)
[2023-06-06 06:30] LABS: BILIRUBIN,URINE NEGATIVE (Neg); CLARITY,URINE CLOUDY (Clear); COLOR,URINE YELLOW (Yellow); GLUCOSE, URINE NEGATIVE (Neg); KETONES,URINE NEGATIVE (Neg); LEUKOCYTE ESTERASE ,URINE LARGE (Neg); NITRITES, URINE NEGATIVE (Neg); OCCULT BLOOD,URINE TRACE-INTACT (Neg); PH,URINE 7.5 (4.8-8.0); PROTEIN,URINE NEGATIVE (Neg); UROBILINOGEN,URINE 0.2 E.U/dL (0.2-1.0)
[2023-06-06] MEDS: normal saline 1000ML IV soln IVB ONE ×3 (06:30→07:58)
[2023-06-06] MEDS ORDERED: vancomycin/NS 1 GM ADD-VANTAGE 250 ML IV SCH (06:30)
[2023-06-06 06:36] LABS: UA COLLECTION TYPE STRAIGHT CATH
[2023-06-06 06:40] LABS: WBC,URINE TNTC /HPF (0-4)
[2023-06-06 06:41] LABS: BACTERIA,URINE 3+ /HPF (Neg)
[2023-06-06 06:43] LABS: WBC CLUMPS,URINE MANY /HPF (NEGATIVE)
[2023-06-06 06:44] LABS: SQUAMOUS EPITHELIAL CELL,UR MODERATE /LPF (FEW)
[2023-06-06 06:46] LABS: TRANSITIONAL EPI CELLS,URINE MODERATE /HPF
[2023-06-06] MEDS: vancomycin/NS 1 GM ADD-VANTAGE 250 ML IV ONE (07:03)
[2023-06-06] MEDS ORDERED: potassium Cl 20 mEq SR tablet PO PRN ×2 (07:30)
[2023-06-06] MEDS ORDERED: potassium Cl 40MEQ/1/2NS 520ml 520 ML IV PRN (07:30)
[2023-06-06] MEDS ORDERED: magnesium Cl slow-release 64mg tablet PO PRN (07:30)
[2023-06-06] MEDS ORDERED: HYDROcodone/acetaminophen 5mg/325mg tablet PO PRN (07:30)
[2023-06-06] MEDS ORDERED: acetaminophen 325mg tablet PO PRN (07:30)
[2023-06-06] MEDS ORDERED: magnesium 4gm in 100ml NS 100 ML IV PRN (07:30)
[2023-06-06] MEDS ORDERED: morphine 2 MG/ML inj. syringe IV PRN (07:30)
[2023-06-06] MEDS ORDERED: HYDROcodone/acetaminophen 10/325mg tab PO PRN (07:30)
[2023-06-06] MEDS ORDERED: mag hydrox/Alum hydrox/simeth 30ml oral suspension PO PRN (07:30)
[2023-06-06] MEDS ORDERED: ondansetron/PF 4mg/2ml inj IV PRN (07:30)
[2023-06-06] MEDS ORDERED: magnesium 2GM in 50ml NS 50 ML IV PRN (07:30)
[2023-06-06] MEDS ORDERED: magnesium hydroxide 30ml (MOM) UD suspension PO PRN (07:30)
[2023-06-06] MEDS: docusate sod 100mg capsule PO SCH (08:00)
[2023-06-06] MEDS: K and/or MAG REPLACEMENT MC SCH (08:00)
[2023-06-06 08:08] LABS: MAGNESIUM 2.3 MG/DL (1.5-2.4)
[2023-06-06] MEDS: azithromycin/NS 500mg/250ml 250 ML IV ONE (08:58)
[2023-06-06] MEDS: piperacillin/tazo 3.375gm/50ml 50 ML IV SCH (10:18)
[2023-06-06] MEDS ORDERED: MENT3.5O TP (11:06)
[2023-06-06] MEDS ORDERED: ADV50100 INH (11:06)
[2023-06-06] MEDS ORDERED: [UNRECOGNIZED DRUG - CODE] (11:08)
[2023-06-06] MEDS ORDERED: HYDROCORTISONE 2.5% TOP PRN (12:55)
[2023-06-06] MEDS ORDERED: triamcinolone acetonide 0.5% cream 15gm TP PRN (12:55)
[2023-06-06] MEDS ORDERED: ibuprofen 100 MG/5 ML oral susp GT PRN (12:55)
[2023-06-06] MEDS ORDERED: OLOPATADINE HCL EACHEYE PRN (12:55)
[2023-06-06] MEDS ORDERED: non-formulary drug (Albuterol Sulfate 1 VIAL) NEB PRN (12:55)
[2023-06-06] MEDS ORDERED: bisacodyl 10mg suppository rectal RC PRN (12:55)
[2023-06-06] MEDS ORDERED: BISMUTH SUBSALICYLATE GT SCH (12:55)
[2023-06-06] MEDS ORDERED: non-formulary drug (Na Phos,M-B/Na Phos,Di-Ba* (Fleet's Enema*) 1 BOTTLE) RC PRN (12:55)
[2023-06-06] MEDS ORDERED: magnesium hydroxide 30ml (MOM) UD suspension GT PRN (12:55)
[2023-06-06] MEDS ORDERED: DIAZEPAM 10 MG RC PRN ×3 (12:55→14:05)
[2023-06-06] MEDS ORDERED: lactose-reduced food/fiber (Jevity 1.2 Cal) 237ml BOTTLE GT SCH (13:00)
[2023-06-06] MEDS ORDERED: GUAIFENESIN GT SCH (14:00)
[2023-06-06] MEDS ORDERED: DEXTROMETHORPHAN GT SCH (14:00)
[2023-06-06] MEDS ORDERED: PHENYLEPHRINE GT SCH (14:00)
[2023-06-06] MEDS ORDERED: TYPE IN GENERIC & BRAND NAME OF PATIENT MED STRENGTH & FORM NG PRN (14:10)
[2023-06-06] MEDS ORDERED: bismuth subsalicylate 262mg/15ml oral suspension NG PRN (14:15)
[2023-06-06] MEDS ORDERED: albuterol 2.5 MG/3 ML nebule NEB PRN (15:00)
[2023-06-06] MEDS ORDERED: magnesium hydroxide 30ml (MOM) UD suspension NG PRN (15:05)
[2023-06-06] MEDS ORDERED: naphazoline/pheniramine eye 1 DROP BOTTLE EACHEYE PRN (15:10)
[2023-06-06] MEDS ORDERED: acetaminophen 325mg tablet PEG PRN (15:32)
[2023-06-06] MEDS ORDERED: magnesium hydroxide 30ml (MOM) UD suspension PEG PRN ×3 (15:33→20:45)
[2023-06-06] MEDS ORDERED: bismuth subsalicylate 262mg/15ml oral suspension PEG PRN (15:33)
[2023-06-06] MEDS: ZINC OXIDE TP SCH (20:00)
[2023-06-06] MEDS: MENTHOL TP SCH (20:00)
[2023-06-06] MEDS ORDERED: ZINC OXIDE TP SCH (20:00)
[2023-06-06] MEDS ORDERED: guaiFENesin/DM 10ml UD oral syrup NG SCH (20:00)
[2023-06-06] MEDS ORDERED: MENTHOL TP SCH (20:00)
[2023-06-06] MEDS ORDERED: levetiracetam 100mg/ml oral solution 5ml UD cup NG SCH (20:00)
[2023-06-06] MEDS ORDERED: docusate sodium 100mg/10ml UD cup PO SCH (20:40)
[2023-06-06] MEDS ORDERED: ibuprofen 100 MG/5 ML oral susp PEG PRN (20:41)
[2023-06-06] MEDS: lactose-reduced food/fiber (Jevity 1.2 Cal) 237ml BOTTLE PEG SCH (21:00)
[2023-06-06] MEDS: calcium carbonate 500mg tablet NG SCH (21:00)
[2023-06-06] MEDS: enoxaparin 40mg/0.4ml syringe SQ SCH (21:06)
[2023-06-06] MEDS: clonazePAM 0.5mg tablet PEG SCH (21:09)
[2023-06-06] MEDS: ascorbic acid 500mg tablet PEG SCH (21:10)
[2023-06-06] MEDS: zinc oxide ointment 30gm tube TP SCH (21:51)
[2023-06-07] VITALS (9 sets, daily range): BP systolic 107–135; BP diastolic 48–86; PULSE 67–90; RESP 14–20; TEMP 97.8–99.3; O2SAT 90–100
[2023-06-07] MEDS ORDERED: ELECTROLYTE GT SCH
[2023-06-07] MEDS: diphenhydrAMINE 50 mg/ml inj IV ONE (01:50)
[2023-06-07] MEDS: guaiFENesin/DM 10ml UD oral syrup PEG SCH (03:11)
[2023-06-07 03:21] LABS: BASOPHILS % (AUTO) 0.5 % (0-1); EOSINOPHILS # (AUTO) 0.3 X10'3 (0-0.9); EOSINOPHILS % (AUTO) 5.2 % (0-6); HEMATOCRIT 34.6 % (35.0-45.0); HEMOGLOBIN 11.6 g/dl (12.0-16.0); LYMPHOCYTES # (AUTO) 1.1 X10'3 (1.1-4.8); LYMPHOCYTES % (AUTO) 20.4 % (21-51); MEAN CORPUSCULAR HEMOGLOBIN 31.6 PG (27.0-31.0); MEAN CORPUSCULAR HGB CONC 33.4 g/dL (33.0-36.5); MEAN CORPUSCULAR VOLUME 94.7 FL (78-98); MEAN PLATELET VOLUME 8.7 FL (7.4-10.4); MONOCYTES # (AUTO) 0.4 X10'3 (0-0.9); MONOCYTES % (AUTO) 7.2 % (2-12); NEUTROPHILS # (AUTO) 3.7 X10'3 (1.8-7.7); NEUTROPHILS % (AUTO) 66.7 % (42-75); PLATELET COUNT 269 X10'3 (140-440); RED BLOOD COUNT 3.65 X10'6 (4.20-5.60); WHITE BLOOD COUNT 5.5 X10'3 (4.5-11.0)
[2023-06-07 03:25] LABS: ALANINE AMINOTRANSFERASE 17 U/L (12-78); ALBUMIN 2.3 G/DL (3.4-5.0); ALBUMIN/GLOBULIN RATIO 0.7 (1.1-1.5); ALKALINE PHOSPHATASE 73 IU/L (46-116); ANION GAP 6 (8-16); ASPARTATE AMINO TRANSFERASE 16 U/L (10-37); BILIRUBIN,TOTAL 0.4 MG/DL (0.1-1.0); BLOOD UREA NITROGEN 6 MG/DL (7-18); BUN/CREATININE RATIO 10.7 (10.0-20.0); CALCIUM 7.6 MG/DL (8.5-10.1); CHLORIDE 104 MMOL/L (99-107); CREATININE 0.56 MG/DL (0.40-0.90); GLUCOSE 84 MG/DL (70-104); MAGNESIUM 2.3 MG/DL (1.5-2.4); POTASSIUM 3.4 MMOL/L (3.5-5.1); SODIUM 137 MMOL/L (135-145); TOTAL CARBON DIOXIDE 27.3 MMOL/L (24-32); TOTAL PROTEIN 5.7 G/DL (6.4-8.2); eCRCL 91 ML/MIN; eGFR > 90 ML/MIN
[2023-06-07] MEDS: lansoprazole 15mg solutab PEG SCH (09:09)
[2023-06-07] MEDS: levoTHYROXINE 25mcg tablet PEG SCH (09:09)
[2023-06-07] MEDS: aspirin 81mg tab.chew PEG SCH (09:09)
[2023-06-07] MEDS: loratadine 10mg tablet PEG SCH (09:10)
[2023-06-07] MEDS: levetiracetam 100mg/ml oral solution 5ml UD cup PEG SCH (09:10)
[2023-06-07] MEDS: docusate sodium 100mg/10ml UD cup PEG SCH (09:10)
[2023-06-07] MEDS: fluticasone nasal spray 16GM bottle NS SCH (09:11)
[2023-06-07] MEDS: polyethylene glycol 3350 17gm powd pack PEG SCH (09:11)
[2023-06-07] MEDS: mag hydrox/Alum hydrox/simeth 30ml oral suspension PEG PRN (09:18)
[2023-06-07] MEDS ORDERED: POTASSIUM BICARB 20meq eff tab 20 MEQ TABLET.EFF PO PRN (11:08)
[2023-06-07] MEDS: POTASSIUM BICARB 20meq eff tab 20 MEQ TABLET.EFF PO PRN (11:26)
[2023-06-07] MEDS: acetaminophen 325mg/10.15ml oral unit dose solution PEG PRN (15:47)
[2023-06-07] MEDS ORDERED: hydrALAZINE 20mg/ml inj. IV PRN (17:55)
[2023-06-07] MEDS: hydrALAZINE 20mg/ml inj. IV SCH (18:01)
[2023-06-07] MEDS: NYSTATIN CREAM - 30GM TUBE TP PRN (21:20)
[2023-06-07] MEDS: hydrocortisone 2.5% cream 28.4gm TP PRN (21:21)
[2023-06-08] VITALS (9 sets, daily range): BP systolic 102–140; BP diastolic 56–75; PULSE 60–97; RESP 12–22; TEMP 97–98.6; O2SAT 93–100
[2023-06-08 06:56] LABS: BASOPHILS # (AUTO) 0.1 X10'3 (0-0.2); EOSINOPHILS # (AUTO) 0.3 X10'3 (0-0.9); EOSINOPHILS % (AUTO) 7.2 % (0-6); HEMATOCRIT 35.5 % (35.0-45.0); HEMOGLOBIN 11.9 g/dl (12.0-16.0); LYMPHOCYTES # (AUTO) 1.1 X10'3 (1.1-4.8); LYMPHOCYTES % (AUTO) 22.1 % (21-51); MEAN CORPUSCULAR HEMOGLOBIN 31.7 PG (27.0-31.0); MEAN CORPUSCULAR HGB CONC 33.5 g/dL (33.0-36.5); MEAN CORPUSCULAR VOLUME 94.5 FL (78-98); MEAN PLATELET VOLUME 8.7 FL (7.4-10.4); MONOCYTES # (AUTO) 0.6 X10'3 (0-0.9); MONOCYTES % (AUTO) 13.5 % (2-12); NEUTROPHILS # (AUTO) 2.7 X10'3 (1.8-7.7); NEUTROPHILS % (AUTO) 56.2 % (42-75); PLATELET COUNT 270 X10'3 (140-440); RED BLOOD COUNT 3.75 X10'6 (4.20-5.60); RED CELL DISTRIBUTION WIDTH 13.8 % (11.5-14.5); WHITE BLOOD COUNT 4.8 X10'3 (4.5-11.0)
[2023-06-08 07:17] LABS: ANION GAP 3 (8-16); BLOOD UREA NITROGEN 10 MG/DL (7-18); BUN/CREATININE RATIO 17.2 (10.0-20.0); CALCIUM 8.1 MG/DL (8.5-10.1); CHLORIDE 102 MMOL/L (99-107); CREATININE 0.58 MG/DL (0.40-0.90); GLUCOSE 116 MG/DL (70-104); MAGNESIUM 2.2 MG/DL (1.5-2.4); POTASSIUM 3.8 MMOL/L (3.5-5.1); SODIUM 136 MMOL/L (135-145); TOTAL CARBON DIOXIDE 31.2 MMOL/L (24-32); eCRCL 88 ML/MIN; eGFR > 90 ML/MIN
[2023-06-08 07:18] LABS: ALANINE AMINOTRANSFERASE 18 U/L (12-78); ALBUMIN 2.3 G/DL (3.4-5.0); ALBUMIN/GLOBULIN RATIO 0.6 (1.1-1.5); ALKALINE PHOSPHATASE 96 IU/L (46-116); ASPARTATE AMINO TRANSFERASE 20 U/L (10-37); BILIRUBIN,TOTAL 0.3 MG/DL (0.1-1.0); PREALBUMIN 15.7 MG/DL (19-36)
[2023-06-08] MEDS: albuterol 2.5 MG/3 ML nebule NEB PRN (09:55)
[2023-06-08] MEDS: budesonide 0.5mg/2ml UD nebule IH SCH (09:55)
[2023-06-08] MEDS: levoFLOXACIN-Levaquin 500mg/D5 100 ML IV ONE (10:48)
[2023-06-08] MEDS: metroNIDAZOLE-Flagyl 500mg/NS 100 ML IV SCH (16:32)
[2023-06-08] MEDS: linezolid 600mg tablet PO SCH (20:18)
[2023-06-09] VITALS (8 sets, daily range): BP systolic 110–138; BP diastolic 62–78; PULSE 54–92; RESP 12–24; TEMP 97.9–99; O2SAT 91–100
[2023-06-09 07:14] LABS: EOSINOPHILS # (AUTO) 0.3 X10'3 (0-0.9); HEMOGLOBIN 12.4 g/dl (12.0-16.0); NEUTROPHILS # (AUTO) 3.1 X10'3 (1.8-7.7)
[2023-06-09 07:17] LABS: BASOPHILS # (AUTO) 0.1 X10'3 (0-0.2); BASOPHILS % (AUTO) 1.1 % (0-1); EOSINOPHILS % (AUTO) 5.6 % (0-6); HEMATOCRIT 36.8 % (35.0-45.0); LYMPHOCYTES # (AUTO) 1.3 X10'3 (1.1-4.8); LYMPHOCYTES % (AUTO) 22.7 % (21-51); MEAN CORPUSCULAR HEMOGLOBIN 31.7 PG (27.0-31.0); MEAN CORPUSCULAR HGB CONC 33.7 g/dL (33.0-36.5); MEAN CORPUSCULAR VOLUME 93.9 FL (78-98); MONOCYTES # (AUTO) 0.9 X10'3 (0-0.9); MONOCYTES % (AUTO) 15.9 % (2-12); NEUTROPHILS % (AUTO) 54.7 % (42-75); PLATELET COUNT 312 X10'3 (140-440); RED BLOOD COUNT 3.92 X10'6 (4.20-5.60); RED CELL DISTRIBUTION WIDTH 13.8 % (11.5-14.5); WHITE BLOOD COUNT 5.7 X10'3 (4.5-11.0)
[2023-06-09 07:42] LABS: ALANINE AMINOTRANSFERASE 17 U/L (12-78); ALBUMIN 2.5 G/DL (3.4-5.0); ALBUMIN/GLOBULIN RATIO 0.6 (1.1-1.5); ALKALINE PHOSPHATASE 100 IU/L (46-116); ANION GAP 7 (8-16); ASPARTATE AMINO TRANSFERASE 18 U/L (10-37); BILIRUBIN,TOTAL 0.3 MG/DL (0.1-1.0); BLOOD UREA NITROGEN 10 MG/DL (7-18); BUN/CREATININE RATIO 15.6 (10.0-20.0); CALCIUM 8.4 MG/DL (8.5-10.1); CHLORIDE 102 MMOL/L (99-107); CREATININE 0.64 MG/DL (0.40-0.90); GLUCOSE 101 MG/DL (70-104); MAGNESIUM 2.1 MG/DL (1.5-2.4); POTASSIUM 3.7 MMOL/L (3.5-5.1); SODIUM 137 MMOL/L (135-145); THYROID STIMULATING HORMONE 6.55 ulU/ml (0.34-4.50); TOTAL CARBON DIOXIDE 28.2 MMOL/L (24-32); TOTAL PROTEIN 6.5 G/DL (6.4-8.2); eCRCL 79 ML/MIN; eGFR > 90 ML/MIN
[2023-06-09] MEDS: levoFLOXACIN-Levaquin 500mg/D5 100 ML IV SCH (08:25)
[2023-06-10] VITALS (8 sets, daily range): BP systolic 112–122; BP diastolic 55–66; PULSE 61–96; RESP 16–24; TEMP 98.6–98.8; O2SAT 95–100
[2023-06-10] MEDS: levoTHYROXINE 75mcg tablet PEG SCH (07:17)
[2023-06-10 07:23] LABS: BASOPHILS # (AUTO) 0.1 X10'3 (0-0.2); EOSINOPHILS # (AUTO) 0.2 X10'3 (0-0.9); EOSINOPHILS % (AUTO) 4.4 % (0-6); HEMATOCRIT 35.4 % (35.0-45.0); HEMOGLOBIN 11.9 g/dl (12.0-16.0); LYMPHOCYTES # (AUTO) 0.8 X10'3 (1.1-4.8); LYMPHOCYTES % (AUTO) 15.5 % (21-51); MEAN CORPUSCULAR HEMOGLOBIN 31.7 PG (27.0-31.0); MEAN CORPUSCULAR HGB CONC 33.6 g/dL (33.0-36.5); MEAN CORPUSCULAR VOLUME 94.6 FL (78-98); MEAN PLATELET VOLUME 8.8 FL (7.4-10.4); MONOCYTES # (AUTO) 0.6 X10'3 (0-0.9); MONOCYTES % (AUTO) 11.6 % (2-12); NEUTROPHILS # (AUTO) 3.4 X10'3 (1.8-7.7); NEUTROPHILS % (AUTO) 67.5 % (42-75); PLATELET COUNT 315 X10'3 (140-440); RED BLOOD COUNT 3.74 X10'6 (4.20-5.60); RED CELL DISTRIBUTION WIDTH 13.5 % (11.5-14.5)
[2023-06-10 07:27] LABS: ALBUMIN 2.4 G/DL (3.4-5.0); ANION GAP 5 (8-16); BILIRUBIN,TOTAL 0.2 MG/DL (0.1-1.0); BLOOD UREA NITROGEN 10 MG/DL (7-18); BUN/CREATININE RATIO 15.2 (10.0-20.0); CALCIUM 8.2 MG/DL (8.5-10.1); CHLORIDE 102 MMOL/L (99-107); CREATININE 0.66 MG/DL (0.40-0.90); GLUCOSE 126 MG/DL (70-104); POTASSIUM 3.6 MMOL/L (3.5-5.1); SODIUM 136 MMOL/L (135-145); TOTAL CARBON DIOXIDE 29.1 MMOL/L (24-32); TOTAL PROTEIN 6.1 G/DL (6.4-8.2); eCRCL 77 ML/MIN; eGFR > 90 ML/MIN
[2023-06-10 07:28] LABS: ALANINE AMINOTRANSFERASE 23 U/L (12-78); ALBUMIN/GLOBULIN RATIO 0.6 (1.1-1.5); ALKALINE PHOSPHATASE 86 IU/L (46-116); ASPARTATE AMINO TRANSFERASE 28 U/L (10-37)
[2023-06-10] MEDS: LACOSAMIDE 200mg/20ml inj. 200 MG in normal saline 100ml IV soln 100 ML IV SCH (12:08)
[2023-06-10] MEDS: ipratropium/albuterol 3ml nebule NEB PRN (20:54)
[2023-06-10] MEDS: levetiracetam 100mg/ml oral solution 5ml UD cup PEG SCH (21:00)
[2023-06-11 06:00] VITALS: BP 118/63; PULSE 96; RESP 16; TEMP 99.1; O2SAT 100
[2023-06-11 06:08] LABS: EOSINOPHILS # (AUTO) 0.2 X10'3 (0-0.9); WHITE BLOOD COUNT 6.6 X10'3 (4.5-11.0)
[2023-06-11 06:11] LABS: BASOPHILS # (AUTO) 0.1 X10'3 (0-0.2); BASOPHILS % (AUTO) 1.3 % (0-1); EOSINOPHILS % (AUTO) 3.3 % (0-6); LYMPHOCYTES # (AUTO) 1.9 X10'3 (1.1-4.8); LYMPHOCYTES % (AUTO) 28.8 % (21-51); MEAN CORPUSCULAR HEMOGLOBIN 31.8 PG (27.0-31.0); MEAN CORPUSCULAR HGB CONC 33.3 g/dL (33.0-36.5); MEAN CORPUSCULAR VOLUME 95.3 FL (78-98); MEAN PLATELET VOLUME 8.6 FL (7.4-10.4); MONOCYTES # (AUTO) 1.1 X10'3 (0-0.9); NEUTROPHILS # (AUTO) 3.3 X10'3 (1.8-7.7); NEUTROPHILS % (AUTO) 49.6 % (42-75); PLATELET COUNT 340 X10'3 (140-440); RED BLOOD COUNT 3.78 X10'6 (4.20-5.60)
[2023-06-11 06:22] LABS: ALANINE AMINOTRANSFERASE 26 U/L (12-78); ALBUMIN 2.7 G/DL (3.4-5.0); ALBUMIN/GLOBULIN RATIO 0.8 (1.1-1.5); ALKALINE PHOSPHATASE 90 IU/L (46-116); ANION GAP 5 (8-16); ASPARTATE AMINO TRANSFERASE 45 U/L (10-37); BILIRUBIN,TOTAL 0.3 MG/DL (0.1-1.0); BLOOD UREA NITROGEN 15 MG/DL (7-18); BUN/CREATININE RATIO 22.1 (10.0-20.0); CALCIUM 8.4 MG/DL (8.5-10.1); CHLORIDE 107 MMOL/L (99-107); CREATININE 0.68 MG/DL (0.40-0.90); GLUCOSE 89 MG/DL (70-104); POTASSIUM 4.1 MMOL/L (3.5-5.1); SODIUM 141 MMOL/L (135-145); TOTAL CARBON DIOXIDE 29.1 MMOL/L (24-32); TOTAL PROTEIN 6.2 G/DL (6.4-8.2); eCRCL 75 ML/MIN; eGFR 90 ML/MIN
[2023-06-11] MEDS ORDERED: LEVE100S GT (07:37)
[2023-06-11] MEDS ORDERED: LACO200T2 PO (07:37)
[2023-06-11 08:14] VITALS: RESP 16; O2SAT 100
[2023-06-11 08:24] LABS: PLATELET ESTIMATE NORMAL; TOTAL CELLS COUNTED 100
[2023-06-11 09:55] VITALS: PULSE 94; RESP 21; O2SAT 99
[2023-06-11 10:00] VITALS: BP 100/45; PULSE 94; RESP 16; TEMP 98.1; O2SAT 96
[2023-06-11 10:06] VITALS: PULSE 110; RESP 19
[2023-06-11] MEDS ORDERED: LACO200T2 PEG ×2 (10:52→11:01)
[2023-06-11] MEDS ORDERED: LINE600T14 PEG (11:01)
[2023-06-11] MEDS ORDERED: IPRA3AMP9 NEB (11:01)
[2023-06-11] MEDS ORDERED: FLUC100T40 PEG (11:04)
== END 2023-06-11 14:45 | disposition home or self-care (01) | DRG 100 ==
LOC: ER 05:30 → ED HOLD 07:33 → ORTHO 4S 06-07 00:15
PROVIDERS: ADMIT Internal Medicine; ATTEND Internal Medicine
PROC: 4A00X4Z Measurement of Central Nervous Electrical Activity, External Approach (ICD-10-PCS; principal; 2023-06-09)
DX: G40.909 Epilepsy, unspecified, not intractable, without status epilepticus (principal); J69.0 Pneumonitis due to inhalation of food and vomit; J96.21 Acute and chronic respiratory failure with hypoxia; N39.0 Urinary tract infection, site not specified; Z16.24 Resistance to multiple antibiotics; F03.94 Unspecified dementia, unspecified severity, with anxiety; B95.2 Enterococcus as the cause of diseases classified elsewhere; E03.9 Hypothyroidism, unspecified; E78.5 Hyperlipidemia, unspecified; G80.9 Cerebral palsy, unspecified; Z20.822 Contact with and (suspected) exposure to COVID-19; J45.909 Unspecified asthma, uncomplicated; Z51.5 Encounter for palliative care; Q90.9 Down syndrome, unspecified; Z93.1 Gastrostomy status; Z79.899 Other long term (current) drug therapy; Z74.01 Bed confinement status; Z63.4 Disappearance and death of family member
CPT/HCPCS: 36415; 36600; 71045; 80053; 81001; 82803; 82948; 83605; 83735; 83880; 84134; 84145; 84443; 84484; 85007; 85018; 85025; 85651; 87040; 87077; 87081; 87088; 87186; 87502; 87503; 87634; 87811; 93005; 94640; 94760; 95720; 99285; A4349; A6209; A6449; C1758; C9254; G0378; J0456; J0696; J1200; J1650; J1953; J1956; J2543; J3370; J3490; J7030; J7040

== ENCOUNTER 2024-02-06 15:08 | Emergency (ER) | payer MEDICARE, MEDICAID ==
[~2024-02-06] VITALS: Ht 152.4 cm; Wt 54.0 kg
[~2024-02-06 15:08] MED LIST changes: +FLUC100T40 PEG; +IPRA3AMP9 NEB; +LACO200T2 PEG; +LINE600T14 PEG; +MENT3.5O TP; +[UNRECOGNIZED DRUG - CODE]
[2024-02-06 15:13] VITALS: TEMP 98.3
[2024-02-06] MEDS: LORazepam 2 mg/ml vial IV ONE (16:38)
[2024-02-06 16:48] LABS: BASOPHILS # (AUTO) 0.1 X10'3 (0-0.2); BASOPHILS % (AUTO) 1.7 % (0-1); EOSINOPHILS # (AUTO) 0.1 X10'3 (0-0.9); EOSINOPHILS % (AUTO) 2.8 % (0-6); HEMATOCRIT 38.4 % (35.0-45.0); HEMOGLOBIN 12.7 g/dl (12.0-16.0); LYMPHOCYTES # (AUTO) 1.3 X10'3 (1.1-4.8); LYMPHOCYTES % (AUTO) 27.1 % (21-51); MEAN CORPUSCULAR HEMOGLOBIN 32.6 PG (27.0-31.0); MEAN CORPUSCULAR VOLUME 98.6 FL (78-98); MEAN PLATELET VOLUME 8.4 FL (7.4-10.4); MONOCYTES # (AUTO) 0.6 X10'3 (0-0.9); MONOCYTES % (AUTO) 11.7 % (2-12); NEUTROPHILS # (AUTO) 2.7 X10'3 (1.8-7.7); NEUTROPHILS % (AUTO) 56.7 % (42-75); PLATELET COUNT 330 X10'3 (140-440); RED CELL DISTRIBUTION WIDTH 13.3 % (11.5-14.5); WHITE BLOOD COUNT 4.7 X10'3 (4.5-11.0)
[2024-02-06 16:55] LABS: PROTHROMBIN TIME 10.3 SECONDS (9.0-12.0)
[2024-02-06 16:59] LABS: ALANINE AMINOTRANSFERASE 40 U/L (12-78); ALBUMIN/GLOBULIN RATIO 0.8 (1.1-1.5); ALKALINE PHOSPHATASE 102 IU/L (46-116); ANION GAP 4 (8-16); ASPARTATE AMINO TRANSFERASE 21 U/L (10-37); BILIRUBIN,TOTAL 0.2 MG/DL (0.1-1.0); BLOOD UREA NITROGEN 9 MG/DL (7-18); CALCIUM 8.4 MG/DL (8.5-10.1); CHLORIDE 99 MMOL/L (99-107); GLUCOSE 85 MG/DL (70-104); POTASSIUM 4.1 MMOL/L (3.5-5.1); SODIUM 136 MMOL/L (135-145); TOTAL CARBON DIOXIDE 32.9 MMOL/L (24-32); TOTAL PROTEIN 6.9 G/DL (6.4-8.2); eCRCL 92 ML/MIN; eGFR > 90 ML/MIN
[2024-02-06 17:01] LABS: CLARITY,URINE TURBID (Clear); COLOR,URINE RED (Yellow); UA COLLECTION TYPE STRAIGHT CATH
[2024-02-06] MEDS: normal saline 1000ml 1,000 ML IV ONE (17:05)
[2024-02-06] MEDS ORDERED: iohexol 300mg/ml 100ml inj. ONE (17:07)
[2024-02-06 17:12] LABS: BACTERIA,URINE FEW /HPF (Neg); RBC,URINE TNTC /HPF (0-2); SQUAMOUS EPITHELIAL CELL,UR FEW /LPF (FEW); WBC,URINE 0-4 /HPF (0-4)
[2024-02-06 18:27] VITALS: BP 132/68; PULSE 67; RESP 10; O2SAT 100
== END 2024-02-06 19:14 | disposition home or self-care (01) ==
LOC: ER 15:09
DX: N32.9 Bladder disorder, unspecified (principal); Z20.822 Contact with and (suspected) exposure to COVID-19; Z88.6 Allergy status to analgesic agent; Z88.8 Allergy status to other drugs, medicaments and biological substances; Z79.82 Long term (current) use of aspirin; Z79.899 Other long term (current) drug therapy
CPT/HCPCS: 36415; 74178; 80053; 81001; 84145; 85025; 85610; 87811; 96361; 96374; 99285; A4353; J2060; J7030; Q9967

== ENCOUNTER 2024-02-06 21:08 | Emergency (ER) | payer MEDICARE, MEDICAID ==
[~2024-02-06] VITALS: Ht 142.2 cm; Wt 55.5 kg
[2024-02-06 23:15] LABS: BASOPHILS # (AUTO) 0.1 X10'3 (0-0.2); BASOPHILS % (AUTO) 1.3 % (0-1); EOSINOPHILS # (AUTO) 0.1 X10'3 (0-0.9); EOSINOPHILS % (AUTO) 2.2 % (0-6); HEMATOCRIT 39.1 % (35.0-45.0); LYMPHOCYTES # (AUTO) 1.5 X10'3 (1.1-4.8); LYMPHOCYTES % (AUTO) 30.4 % (21-51); MEAN CORPUSCULAR HEMOGLOBIN 32.7 PG (27.0-31.0); MEAN CORPUSCULAR HGB CONC 33.2 g/dL (33.0-36.5); MEAN CORPUSCULAR VOLUME 98.4 FL (78-98); MEAN PLATELET VOLUME 8.1 FL (7.4-10.4); MONOCYTES # (AUTO) 0.6 X10'3 (0-0.9); MONOCYTES % (AUTO) 11.4 % (2-12); NEUTROPHILS # (AUTO) 2.7 X10'3 (1.8-7.7); NEUTROPHILS % (AUTO) 54.7 % (42-75); PLATELET COUNT 332 X10'3 (140-440); RED BLOOD COUNT 3.98 X10'6 (4.20-5.60); RED CELL DISTRIBUTION WIDTH 13.4 % (11.5-14.5)
[2024-02-07] MEDS: levetiracetam 250mg tablet PO ONE (00:21)
[2024-02-07] MEDS: acetaminophen 325mg tablet PO ONE (00:21)
[2024-02-07] MEDS: clonazePAM 0.5mg tablet PO ONE (00:22)
[2024-02-07] MEDS: LACOSAMIDE (Vimpat) 100mg/10ml (10 MG/ML) oral UD solution PO ONE (00:22)
[2024-02-07 05:24] VITALS: BP 136/88; PULSE 80; RESP 14; TEMP 97.1; O2SAT 100
== END 2024-02-07 05:26 | disposition home or self-care (01) ==
LOC: ER 21:08
DX: N93.9 Abnormal uterine and vaginal bleeding, unspecified (principal); F03.90 Unspecified dementia, unspecified severity, without behavioral disturbance, psychotic disturbance, mood disturbance, and anxiety; Z88.6 Allergy status to analgesic agent; Z79.899 Other long term (current) drug therapy; Z79.82 Long term (current) use of aspirin
CPT/HCPCS: 36415; 85025; 99285; A6253; A6258; A6402; J7030; A6449

== ENCOUNTER 2024-04-03 09:12 | Inpatient (IN) | payer MEDICARE, MEDICAID ==
[~2024-04-03] VITALS: Ht 157.5 cm; Wt 68.5 kg
[2024-04-03] VITALS (11 sets, daily range): BP systolic 114–131; BP diastolic 48–71; PULSE 77–127; RESP 14–20; TEMP 97.9–98.6; O2SAT 91–98
[2024-04-03 10:00] LABS: BASOPHILS % (AUTO) 0.3 % (0-1); EOSINOPHILS # (AUTO) 0.1 X10'3 (0-0.9); EOSINOPHILS % (AUTO) 0.4 % (0-6); HEMATOCRIT 37.9 % (35.0-45.0); HEMOGLOBIN 12.6 g/dl (12.0-16.0); LYMPHOCYTES # (AUTO) 0.4 X10'3 (1.1-4.8); LYMPHOCYTES % (AUTO) 2.2 % (21-51); MEAN CORPUSCULAR HEMOGLOBIN 32.2 PG (27.0-31.0); MEAN CORPUSCULAR HGB CONC 33.2 g/dL (33.0-36.5); MEAN CORPUSCULAR VOLUME 96.9 FL (78-98); MEAN PLATELET VOLUME 8.4 FL (7.4-10.4); MONOCYTES % (AUTO) 6.3 % (2-12); NEUTROPHILS % (AUTO) 90.8 % (42-75); PLATELET COUNT 297 X10'3 (140-440); RED BLOOD COUNT 3.91 X10'6 (4.20-5.60); RED CELL DISTRIBUTION WIDTH 13.4 % (11.5-14.5); WHITE BLOOD COUNT 16.5 X10'3 (4.5-11.0)
[2024-04-03 10:22] LABS: ALBUMIN 3.1 G/DL (3.4-5.0); ANION GAP 8 (8-16); BLOOD UREA NITROGEN 14 MG/DL (7-18); BUN/CREATININE RATIO 16.3 (10.0-20.0); CALCIUM 8.6 MG/DL (8.5-10.1); CHLORIDE 94 MMOL/L (99-107); CREATININE 0.86 MG/DL (0.40-0.90); GLUCOSE 111 MG/DL (70-104); POTASSIUM 4.2 MMOL/L (3.5-5.1); PRO BRAIN NATRIURETIC PEPTIDE 327 PG/ML (0-125); SODIUM 130 MMOL/L (135-145); TOTAL CARBON DIOXIDE 27.6 MMOL/L (24-32); eCRCL 58 ML/MIN; eGFR 69 ML/MIN
[2024-04-03] MEDS: normal saline 1000ml 1,000 ML IV ONE (10:38)
[2024-04-03 10:49] LABS: ALANINE AMINOTRANSFERASE 26 U/L (12-78); ALBUMIN/GLOBULIN RATIO 0.8 (1.1-1.5); ALKALINE PHOSPHATASE 100 IU/L (46-116); ASPARTATE AMINO TRANSFERASE 19 U/L (10-37); BILIRUBIN,TOTAL 0.4 MG/DL (0.1-1.0); TOTAL PROTEIN 6.9 G/DL (6.4-8.2)
[2024-04-03] MEDS: piperacillin/tazo 3.375gm/50ml 50 ML IV STA (10:49)
[2024-04-03] MEDS ORDERED: ACET160S GT (12:18)
[2024-04-03] MEDS ORDERED: potassium Cl 20 mEq SR tablet PO PRN ×2 (12:25)
[2024-04-03] MEDS ORDERED: magnesium hydroxide 30ml (MOM) UD suspension PO PRN (12:25)
[2024-04-03] MEDS ORDERED: acetaminophen 325mg tablet PO PRN (12:25)
[2024-04-03] MEDS ORDERED: magnesium sulf-water 4G/100mL 100 ML IV PRN (12:25)
[2024-04-03] MEDS ORDERED: potassium Cl 40MEQ/1/2NS 520ml 520 ML IV PRN (12:25)
[2024-04-03] MEDS ORDERED: magnesium sulf-water 2g/50mL 50 ML IV PRN (12:25)
[2024-04-03] MEDS ORDERED: ondansetron/PF 4mg/2ml inj IV PRN (12:25)
[2024-04-03] MEDS ORDERED: mag hydrox/Alum hydrox/simeth 30ml oral suspension PO PRN (12:25)
[2024-04-03 13:06] LABS: MAGNESIUM 2.2 MG/DL (1.5-2.4)
[2024-04-03] MEDS: methylPREDNISolone sod succ 125mg/2ml vial IV SCH (13:15)
[2024-04-03] MEDS: normal saline 1000ml 1,000 ML IV SCH (13:15)
[2024-04-03] MEDS: CefTRIAXone 2gm/D5W 50ml BAG 50 ML IV SCH (13:15)
[2024-04-03 13:31] LABS: CHOL/HDL RATIO 2.4 (0.00-4.99); CHOLESTEROL 174 MG/DL (0-200); FREE T4 (FREE THYROXINE) 1.04 NG/DL (0.73-1.40); HDL CHOLESTEROL 74 MG/DL (35-60); LDL CHOLESTEROL 89 MG/DL (50-100); THYROID STIMULATING HORMONE 2.96 ulU/ml (0.34-4.50); TRIGLYCERIDES 61 MG/DL (20-135)
[2024-04-03 13:36] LABS: D-DIMER 0.74 MG/L FEU (0-0.50)
[2024-04-03] MEDS: ipratropium/albuterol 3ml nebule NEB SCH (13:46)
[2024-04-03 13:59] LABS: ABG BASE EXCESS -3.4 mmol/L (-2.0-3.0); ABG HCO3 19.6 mmol/L (21.0-28.0); ABG OXYGEN SATURATION 97.2 % (94.0-98.0); ABG PCO2 (T) 29.1 mmHg (32.0-45.0); ABG PH (T) 7.447 (7.350-7.450); ABG PO2 (T) 90.4 mmHg (83.0-108.0); ALLEN'S TEST POSITIVE; FCOHb 0.3 % (0.5-1.5); FHHb 2.8 % (0.0-5.0); FLOW 2 L/min; FMetHb 0.3 % (0.0-1.5); FO2Hb 96.6 % (94.0-98.0); MODE NASAL CANNULA; TOTAL HEMOGLOBIN 11.6 G/dl (12.0-16.0)
[2024-04-03] MEDS ORDERED: LACO10SO PEG (14:03)
[2024-04-03] MEDS ORDERED: IPRA3AMP31 NEB (14:03)
[2024-04-03] MEDS ORDERED: LEVE100S PEG (14:03)
[2024-04-03] MEDS: azithromycin/NS 500mg/250ml 250 ML IV SCH (15:13)
[2024-04-03 15:52] LABS: BILIRUBIN,URINE NEGATIVE (Neg); CLARITY,URINE CLOUDY (Clear); COLOR,URINE STRAW (Yellow); GLUCOSE, URINE NEGATIVE (Neg); KETONES,URINE NEGATIVE (Neg); LEUKOCYTE ESTERASE ,URINE MODERATE (Neg); NITRITES, URINE NEGATIVE (Neg); OCCULT BLOOD,URINE TRACE-INTACT (Neg); PROTEIN,URINE NEGATIVE (Neg); UROBILINOGEN,URINE 0.2 E.U/dL (0.2-1.0)
[2024-04-03 16:23] LABS: UA COLLECTION TYPE VOIDED
[2024-04-03 16:24] LABS: BACTERIA,URINE 3+ /HPF (Neg); MUCUS STRANDS FEW /LPF (Neg); SQUAMOUS EPITHELIAL CELL,UR FEW /LPF (FEW); TRANSITIONAL EPI CELLS,URINE FEW /HPF; WBC,URINE 30-50 /HPF (0-4)
[2024-04-03] MEDS: K and/or MAG REPLACEMENT MC SCH (19:55)
[2024-04-03] MEDS: clonazePAM 0.5mg tablet PEG SCH (19:59)
[2024-04-03] MEDS: heparin, porcine 5000 units/ml vial SQ SCH (19:59)
[2024-04-03] MEDS ORDERED: docusate sod 100mg capsule PO SCH (20:00)
[2024-04-03] MEDS ORDERED: iohexol 350MG/ML 100ml bottle IV ONE (20:03)
[2024-04-03] MEDS: docusate sodium 100mg/10ml UD cup PO SCH (20:03)
[2024-04-04] VITALS (15 sets, daily range): BP systolic 119–136; BP diastolic 75–93; PULSE 80–117; RESP 16–20; TEMP 97.8–99.5; O2SAT 94–99
[2024-04-04 07:04] LABS: BASOPHILS % (AUTO) 0.2 % (0-1); EOSINOPHILS % (AUTO) 0 % (0-6); HEMATOCRIT 34.1 % (35.0-45.0); HEMOGLOBIN 11.5 g/dl (12.0-16.0); LYMPHOCYTES # (AUTO) 0.2 X10'3 (1.1-4.8); LYMPHOCYTES % (AUTO) 1.9 % (21-51); MEAN CORPUSCULAR HEMOGLOBIN 33.3 PG (27.0-31.0); MEAN CORPUSCULAR HGB CONC 33.8 g/dL (33.0-36.5); MEAN CORPUSCULAR VOLUME 98.6 FL (78-98); MEAN PLATELET VOLUME 8.9 FL (7.4-10.4); MONOCYTES # (AUTO) 0.1 X10'3 (0-0.9); MONOCYTES % (AUTO) 0.7 % (2-12); NEUTROPHILS % (AUTO) 97.2 % (42-75); PLATELET COUNT 254 X10'3 (140-440); RED BLOOD COUNT 3.45 X10'6 (4.20-5.60); RED CELL DISTRIBUTION WIDTH 13.3 % (11.5-14.5); WHITE BLOOD COUNT 9.3 X10'3 (4.5-11.0)
[2024-04-04 07:14] LABS: ALANINE AMINOTRANSFERASE 21 U/L (12-78); ALBUMIN 2.7 G/DL (3.4-5.0); ALBUMIN/GLOBULIN RATIO 0.8 (1.1-1.5); ALKALINE PHOSPHATASE 78 IU/L (46-116); ANION GAP 11 (8-16); ASPARTATE AMINO TRANSFERASE 20 U/L (10-37); BILIRUBIN,TOTAL 0.1 MG/DL (0.1-1.0); BLOOD UREA NITROGEN 9 MG/DL (7-18); BUN/CREATININE RATIO 9.9 (10.0-20.0); CALCIUM 7.7 MG/DL (8.5-10.1); CHLORIDE 104 MMOL/L (99-107); CREATININE 0.91 MG/DL (0.40-0.90); GLUCOSE 161 MG/DL (70-104); MAGNESIUM 2.1 MG/DL (1.5-2.4); POTASSIUM 3.5 MMOL/L (3.5-5.1); SODIUM 137 MMOL/L (135-145); TOTAL PROTEIN 6.2 G/DL (6.4-8.2); eCRCL 55 ML/MIN; eGFR 64 ML/MIN
[2024-04-04] MEDS: normal saline 1000ml 1,000 ML IV ONE (11:20)
[2024-04-04] MEDS: guaiFENesin 200 MG/10 ML oral syrup UD cup PO PRN (21:46)
[2024-04-04] MEDS: mupirocin 2% nasal ointment 1gm UD NS SCH (21:46)
[2024-04-04] MEDS: metoprolol succinate 25mg (24-HOUR) SR. Tablet PO SCH (21:49)
[2024-04-04] MEDS: aspirin 81mg, enteric-coated 1 TAB TABLET.DR PO SCH (21:49)
[2024-04-05] VITALS (19 sets, daily range): BP systolic 129–161; BP diastolic 59–86; PULSE 74–116; RESP 16–24; TEMP 98.5–99.1; O2SAT 94–99
[2024-04-05 07:42] LABS: ALANINE AMINOTRANSFERASE 30 U/L (12-78); ALBUMIN 2.3 G/DL (3.4-5.0); ALBUMIN/GLOBULIN RATIO 0.6 (1.1-1.5); ALKALINE PHOSPHATASE 79 IU/L (46-116); ANION GAP 8 (8-16); BILIRUBIN,TOTAL 0.2 MG/DL (0.1-1.0); BLOOD UREA NITROGEN 15 MG/DL (7-18); BUN/CREATININE RATIO 28.3 (10.0-20.0); CALCIUM 7.3 MG/DL (8.5-10.1); CHLORIDE 107 MMOL/L (99-107); CREATININE 0.53 MG/DL (0.40-0.90); GLUCOSE 158 MG/DL (70-104); MAGNESIUM 2.2 MG/DL (1.5-2.4); SODIUM 142 MMOL/L (135-145); TOTAL CARBON DIOXIDE 26.9 MMOL/L (24-32); TOTAL PROTEIN 6.1 G/DL (6.4-8.2); eCRCL 95 ML/MIN; eGFR > 90 ML/MIN
[2024-04-05 07:43] LABS: ASPARTATE AMINO TRANSFERASE 47 U/L (10-37); POTASSIUM 4.1 MMOL/L (3.5-5.1)
[2024-04-05 08:34] LABS: BASOPHILS % (AUTO) 0.1 % (0-1); EOSINOPHILS % (AUTO) 0 % (0-6); HEMATOCRIT 31.6 % (35.0-45.0); HEMOGLOBIN 10.6 g/dl (12.0-16.0); LYMPHOCYTES # (AUTO) 0.4 X10'3 (1.1-4.8); LYMPHOCYTES % (AUTO) 2.7 % (21-51); MEAN CORPUSCULAR HEMOGLOBIN 32.9 PG (27.0-31.0); MEAN CORPUSCULAR HGB CONC 33.5 g/dL (33.0-36.5); MEAN CORPUSCULAR VOLUME 98.3 FL (78-98); MEAN PLATELET VOLUME 8.6 FL (7.4-10.4); MONOCYTES # (AUTO) 0.6 X10'3 (0-0.9); MONOCYTES % (AUTO) 3.9 % (2-12); NEUTROPHILS # (AUTO) 14.3 X10'3 (1.8-7.7); NEUTROPHILS % (AUTO) 93.3 % (42-75); PLATELET COUNT 237 X10'3 (140-440); RED BLOOD COUNT 3.21 X10'6 (4.20-5.60); RED CELL DISTRIBUTION WIDTH 13.7 % (11.5-14.5); WHITE BLOOD COUNT 15.3 X10'3 (4.5-11.0)
[2024-04-05 09:24] LABS: HEMOGLOBIN A1C 5.4 % (4.5-6.2)
[2024-04-05] MEDS: LORazepam 2 mg/ml vial IV ONE (11:51)
[2024-04-05] MEDS: LORazepam 2 mg/ml vial ONE (12:09)
[2024-04-05] MEDS: metoprolol tartrate 25mg tablet PO SCH (12:20)
[2024-04-05] MEDS: levetiracetam 100mg/ml oral solution 5ml UD cup PO ONE (14:04)
[2024-04-05] MEDS ORDERED: cefepime 2g/NS 100ml ADVANTAGE 100 ML IV SCH (18:30)
[2024-04-05] MEDS: CEFEPIME 2gm in D5W 50mL 50 ML IV SCH (19:21)
[2024-04-05] MEDS: VANCOMYCIN/WATER FOR INJ (PEG) 1.25GM/250 ML IVPB IV SCH (20:57)
[2024-04-06] VITALS (18 sets, daily range): BP systolic 92–171; BP diastolic 73–85; PULSE 77–104; RESP 15–22; TEMP 97.2–98.4; O2SAT 96–99
[2024-04-06 06:41] LABS: BASOPHILS % (AUTO) 0 % (0-1); EOSINOPHILS % (AUTO) 0 % (0-6); HEMATOCRIT 35.6 % (35.0-45.0); HEMOGLOBIN 11.9 g/dl (12.0-16.0); LYMPHOCYTES # (AUTO) 0.5 X10'3 (1.1-4.8); MEAN CORPUSCULAR HEMOGLOBIN 32.5 PG (27.0-31.0); MEAN CORPUSCULAR HGB CONC 33.5 g/dL (33.0-36.5); MEAN CORPUSCULAR VOLUME 97.1 FL (78-98); MEAN PLATELET VOLUME 9.2 FL (7.4-10.4); MONOCYTES # (AUTO) 0.6 X10'3 (0-0.9); MONOCYTES % (AUTO) 4.4 % (2-12); NEUTROPHILS # (AUTO) 11.9 X10'3 (1.8-7.7); NEUTROPHILS % (AUTO) 91.6 % (42-75); PLATELET COUNT 239 X10'3 (140-440); RED BLOOD COUNT 3.67 X10'6 (4.20-5.60); RED CELL DISTRIBUTION WIDTH 13.4 % (11.5-14.5)
[2024-04-06 06:48] LABS: ALANINE AMINOTRANSFERASE 45 U/L (12-78); ALBUMIN 2.3 G/DL (3.4-5.0); ALBUMIN/GLOBULIN RATIO 0.7 (1.1-1.5); ALKALINE PHOSPHATASE 73 IU/L (46-116); ANION GAP 7 (8-16); ASPARTATE AMINO TRANSFERASE 32 U/L (10-37); BILIRUBIN,TOTAL 0.2 MG/DL (0.1-1.0); BLOOD UREA NITROGEN 15 MG/DL (7-18); BUN/CREATININE RATIO 27.3 (10.0-20.0); CALCIUM 6.9 MG/DL (8.5-10.1); CHLORIDE 103 MMOL/L (99-107); CREATININE 0.55 MG/DL (0.40-0.90); GLUCOSE 157 MG/DL (70-104); SODIUM 140 MMOL/L (135-145); TOTAL CARBON DIOXIDE 30.4 MMOL/L (24-32); TOTAL PROTEIN 5.6 G/DL (6.4-8.2); eCRCL 91 ML/MIN; eGFR > 90 ML/MIN
[2024-04-06 06:49] LABS: POTASSIUM 2.9 MMOL/L (3.5-5.1)
[2024-04-06] MEDS ORDERED: POTASSIUM BICARB 20meq eff tab 20 MEQ TABLET.EFF PO PRN ×3 (07:24→07:30)
[2024-04-06] MEDS ORDERED: magnesium sulf-water 2g/50mL 50 ML IV PRN (07:30)
[2024-04-06] MEDS ORDERED: magnesium sulf-water 4G/100mL 100 ML IV PRN (07:30)
[2024-04-06] MEDS ORDERED: potassium Cl 40MEQ/1/2NS 520ml 520 ML IV PRN (07:30)
[2024-04-06] MEDS ORDERED: POTASSIUM BICARB 20meq eff tab 20 MEQ TABLET.EFF PO SCH (08:00)
[2024-04-06] MEDS: levetiracetam 100mg/ml oral solution 5ml UD cup PO SCH (08:05)
[2024-04-06] MEDS: POTASSIUM BICARB 20meq eff tab 20 MEQ TABLET.EFF PO PRN (08:09)
[2024-04-07] VITALS (12 sets, daily range): BP systolic 102–150; BP diastolic 64–96; PULSE 74–107; RESP 14–19; TEMP 97.5–98.2; O2SAT 96–100
[2024-04-07] MEDS ORDERED: PRED10TA23 GT (15:16)
[2024-04-07] MEDS ORDERED: AMOX-580 GT (15:20)
[2024-04-07] MEDS ORDERED: CIPR-202 GT (15:33)
[2024-04-07] MEDS ORDERED: amox tr/potassium clavulanate 875/125mg TAB PO SCH (20:00)
[2024-04-08] VITALS (15 sets, daily range): BP systolic 117–180; BP diastolic 78–84; PULSE 64–93; RESP 16–18; TEMP 98.1–98.4; O2SAT 96–100
[2024-04-08] MEDS: VANCOMYCIN LEVEL IV ONE ×2 (07:43)
[2024-04-08] MEDS: amox tr/potassium clavulanate 875/125mg TAB PO SCH (08:07)
[2024-04-08] MEDS: ciprofloxacin 250mg tablet PO SCH (08:09)
[2024-04-09] VITALS (9 sets, daily range): BP systolic 125; BP diastolic 73; PULSE 70–82; RESP 16–20; TEMP 98.3; O2SAT 99–100
[2024-04-09] MEDS ORDERED: levetiracetam 100mg/ml oral solution 5ml UD cup PEG SCH (13:21)
[2024-04-09] MEDS: levetiracetam 100mg/ml oral solution 5ml UD cup PEG ONE (13:51)
== END 2024-04-09 15:55 | disposition home or self-care (01) | DRG 871 ==
LOC: ER 09:13 → ED HOLD 12:31 → ORTHO 4S 16:45
PROVIDERS: ADMIT Nurse Practitioner Family; ATTEND Nurse Practitioner Family
PROC: B32T1ZZ Computerized Tomography (CT Scan) of Left Pulmonary Artery using Low Osmolar Contrast (ICD-10-PCS; principal; 2024-04-03)
PROC: B3201ZZ Computerized Tomography (CT Scan) of Thoracic Aorta using Low Osmolar Contrast (ICD-10-PCS; 2024-04-03)
PROC: B32S1ZZ Computerized Tomography (CT Scan) of Right Pulmonary Artery using Low Osmolar Contrast (ICD-10-PCS; 2024-04-03)
DX: A41.9 Sepsis, unspecified organism (principal); J18.9 Pneumonia, unspecified organism; J69.0 Pneumonitis due to inhalation of food and vomit; J96.01 Acute respiratory failure with hypoxia; E87.4 Mixed disorder of acid-base balance; E87.1 Hypo-osmolality and hyponatremia; N17.9 Acute kidney failure, unspecified; Z66 Do not resuscitate; Z20.822 Contact with and (suspected) exposure to COVID-19; E03.9 Hypothyroidism, unspecified; G40.909 Epilepsy, unspecified, not intractable, without status epilepticus; F41.9 Anxiety disorder, unspecified; E87.6 Hypokalemia; E78.5 Hyperlipidemia, unspecified; F03.90 Unspecified dementia, unspecified severity, without behavioral disturbance, psychotic disturbance, mood disturbance, and anxiety; G80.9 Cerebral palsy, unspecified; Z93.1 Gastrostomy status; Q90.9 Down syndrome, unspecified; Z88.8 Allergy status to other drugs, medicaments and biological substances; Z79.82 Long term (current) use of aspirin; Z79.899 Other long term (current) drug therapy
CPT/HCPCS: 36415; 36600; 71045; 71275; 80053; 80061; 80177; 81001; 82803; 83036; 83605; 83735; 83880; 84132; 84134; 84145; 84439; 84443; 85018; 85025; 85379; 87040; 87077; 87081; 87088; 87186; 87502; 87503; 87811; 94640; 94760; 96365; 97161; 97530; 99285; A6213; A6250; A6449; G0378; J0456; J0692; J0696; J1644; J1953; J2060; J2543; J2919; J3372; J7030; Q9967

== ENCOUNTER 2024-08-15 23:19 | Emergency (ER) | payer MEDICARE, MEDICAID ==
[~2024-08-15] VITALS: Ht 149.9 cm; Wt 66.8 kg
[~2024-08-15 23:19] MED LIST changes: +ACET160S GT; +AMOX-580 GT; -ASPI-1265 GT; +CIPR-202 GT; -DIAZ1KIT RC; -FLUC100T40 PEG; +IPRA3AMP31 NEB; -IPRA3AMP9 NEB; +LACO10SO PEG; -LACO200T2 PEG; -LEVE100S GT; +LEVE100S PEG; -LINE600T14 PEG; +PRED10TA23 GT
[2024-08-15 23:50] LABS: BASOPHILS # (AUTO) 0.1 X10'3 (0-0.2); BASOPHILS % (AUTO) 0.7 % (0-1); EOSINOPHILS # (AUTO) 0.1 X10'3 (0-0.9); EOSINOPHILS % (AUTO) 0.8 % (0-6); HEMATOCRIT 39.4 % (35.0-45.0); HEMOGLOBIN 13.3 g/dl (12.0-16.0); LYMPHOCYTES # (AUTO) 0.4 X10'3 (1.1-4.8); MEAN CORPUSCULAR HGB CONC 33.8 g/dL (33.0-36.5); MEAN CORPUSCULAR VOLUME 94.5 FL (78-98); MEAN PLATELET VOLUME 8.2 FL (7.4-10.4); MONOCYTES # (AUTO) 0.5 X10'3 (0-0.9); MONOCYTES % (AUTO) 5.3 % (2-12); NEUTROPHILS # (AUTO) 8.1 X10'3 (1.8-7.7); NEUTROPHILS % (AUTO) 89.2 % (42-75); PLATELET COUNT 294 X10'3 (140-440); RED BLOOD COUNT 4.16 X10'6 (4.20-5.60); RED CELL DISTRIBUTION WIDTH 13.5 % (11.5-14.5); WHITE BLOOD COUNT 9.1 X10'3 (4.5-11.0)
[2024-08-16 00:09] LABS: ALBUMIN 3.4 G/DL (3.4-5.0); ANION GAP 3 (8-16); BLOOD UREA NITROGEN 10 MG/DL (7-18); BUN/CREATININE RATIO 16.7 (10.0-20.0); CHLORIDE 99 MMOL/L (99-107); GLUCOSE 93 MG/DL (70-104); POTASSIUM 4.4 MMOL/L (3.5-5.1); PRO BRAIN NATRIURETIC PEPTIDE 34 PG/ML (0-125); SODIUM 135 MMOL/L (135-145); TOTAL CARBON DIOXIDE 33.1 MMOL/L (24-32); eCRCL 72 ML/MIN; eGFR > 90 ML/MIN
[2024-08-16 00:22] LABS: BILIRUBIN,URINE NEGATIVE (Neg); COLOR,URINE YELLOW (Yellow); GLUCOSE, URINE NEGATIVE (Neg); KETONES,URINE NEGATIVE (Neg); LEUKOCYTE ESTERASE ,URINE MODERATE (Neg); NITRITES, URINE POSITIVE (Neg); OCCULT BLOOD,URINE NEGATIVE (Neg); PH,URINE 6.5 (4.8-8.0); PROTEIN,URINE NEGATIVE (Neg); UROBILINOGEN,URINE 0.2 E.U/dL (0.2-1.0)
[2024-08-16 00:30] LABS: CLARITY,URINE CLOUDY (Clear); UA COLLECTION TYPE STRAIGHT CATH
[2024-08-16 00:31] LABS: BACTERIA,URINE 4+ /HPF (Neg); RBC,URINE 0-2 /HPF (0-2); SQUAMOUS EPITHELIAL CELL,UR FEW /LPF (FEW); WBC CLUMPS,URINE MODERATE /HPF (NEGATIVE); WBC,URINE 50-100 /HPF (0-4)
[2024-08-16] MEDS: normal saline 1000ML IV soln IVB ONE (00:43)
[2024-08-16] MEDS: CefTRIAXone 2gm/D5W 50ml BAG 50 ML IV ONE (00:43)
[2024-08-16] MEDS ORDERED: CEFP100S9 PO (01:50)
[2024-08-16 02:30] VITALS: BP 98/63; PULSE 103; RESP 20; TEMP 97.7; O2SAT 98
[2024-08-19] MEDS ORDERED: AMOX-580 PO (07:38)
[2024-08-19] MEDS ORDERED: FURO-150 PO (13:09)
[2024-08-19] MEDS ORDERED: NEUPHOSK PO (15:40)
== END 2024-08-16 03:23 | disposition home or self-care (01) ==
LOC: ER 23:20
DX: J40 Bronchitis, not specified as acute or chronic (principal); N39.0 Urinary tract infection, site not specified; F03.90 Unspecified dementia, unspecified severity, without behavioral disturbance, psychotic disturbance, mood disturbance, and anxiety; Z88.8 Allergy status to other drugs, medicaments and biological substances
CPT/HCPCS: 96365; 99284; A4353; J0696; J7030; 36415; 71045; 80048; 81001; 83605; 83880; 84145; 85025; 87040; 87077; 87088; 87186